=== PATIENT | male | born 1950 | race Caucasian/White ===

== ENCOUNTER 2017-09-26 02:51 | Inpatient (IN) | payer MEDICARE, BC ==
[~2017-09-26] VITALS: Ht 170.2 cm; Wt 81.6 kg
--- NOTE | 2017-09-26 03:06 | NUR ---
ER MD at bedside for patient evaluation
[2017-09-26] MEDS ORDERED: MECLIZINE HCL 25 MG TABLET PO ONE (03:15)
[2017-09-26] MEDS ORDERED: LORAZEPAM 0.5 MG TABLET PO ONE (03:15)
[2017-09-26] MEDS ORDERED: IV NORMAL SALINE 1000 ML BAG IV ONE (03:15)
[2017-09-26] MEDS ORDERED: METO25TA6 PO (03:21)
[2017-09-26] MEDS ORDERED: TAMS-3 PO (03:21)
[2017-09-26] MEDS ORDERED: APIX5TAB4 PO (03:21)
[2017-09-26] MEDS ORDERED: VILA10TA PO (03:21)
[2017-09-26] MEDS ORDERED: CLON0.1T PO (03:21)
[2017-09-26] MEDS ORDERED: ATOR40TA PO (03:21)
[2017-09-26] MEDS ORDERED: ATOM100C PO (03:21)
[2017-09-26] MEDS ORDERED: DESV100T PO (03:21)
[2017-09-26] MEDS ORDERED: MECLIZINE HCL 25 MG TABLET ONE (03:35)
[2017-09-26] MEDS ORDERED: LORAZEPAM 1 MG TABLET ONE (03:36)
--- NOTE | 2017-09-26 03:36 | NUR ---
Patient taken to CT at this time. No acute distress noted. VSS
[2017-09-26 03:46] LABS: CREATININE 1.4 mg/dL (0.6-1.3); POTASSIUM 3.7 mmol/L (3.5-5.1)
[2017-09-26 03:55] LABS: HEMOGLOBIN 17.8 G/DL (14.0-18.0); RED BLOOD CELL COUNT(AUTO) 5.29 MIL/UL (4.7-6.1); WHITE BLOOD COUNT (AUTO) 10.6 K/UL (4.0-11.2)
[2017-09-26 03:56] LABS: MEAN CORPUSCULAR HEMOGLOBIN 33.6 UUG (27.0-31.0); MEAN CORPUSCULAR HGB CONC 34 g/dL (32.0-37.0); MEAN CORPUSCULAR VOLUME 98.2 FL (82.0-92.0); NEUTROPHILS % (AUTO) 41.1 % (38.5-71.5); PLATELET COUNT (AUTO) 171 K/UL (150-450)
[2017-09-26 03:57] LABS: BASOPHILS % (AUTO) 0.5 % (0.0-2.0); EOSINOPHILS % (AUTO) 1.6 % (0.0-7.0); MONOCYTES % (AUTO) 7.8 % (0.0-11.0)
[2017-09-26 03:58] LABS: BILIRUBIN,DIRECT 0.1 mg/dL (0.0-0.2); BILIRUBIN,TOTAL 0.6 mg/dL (0.2-1.0); TOTAL PROTEIN, SERUM 7.2 g/dL (6.4-8.2)
--- NOTE | 2017-09-26 04:27 | NUR ---
Patient awaiting inpatient admission. patient to be admitted to Telemetry, bed 224 under Baljeet Sosa DNP. Dx: Altered mental status
[2017-09-26] MEDS ORDERED: MAGNESIUM HYDROXIDE 30 ML LIQUID UDC PO PRN (04:45)
[2017-09-26] MEDS ORDERED: Z GUARD REMEDY PASTE 57 GM TUBE TOP PRN (04:45)
[2017-09-26] MEDS ORDERED: ACETAMINOPHEN 325 MG TABLET PO PRN (04:45)
[2017-09-26] MEDS ORDERED: HYDROCODONE/APAP 5-325MG TABLET PO PRN (04:45)
[2017-09-26] MEDS ORDERED: ONDANSETRON 4 MG/2 ML VIAL IV PRN (04:45)
--- NOTE | 2017-09-26 05:40 | NUR ---
Report given to Cecille CRUZ
--- NOTE | 2017-09-26 05:47 | NUR ---
Pt. admitted to Telemetry , under care of Baljeet Sosa DNP. Belongs List completed.
[2017-09-26 06:30] VITALS: BP 125/82
--- NOTE | 2017-09-26 08:00 | NUR ---
Pt alert and oriented x 3. Bruising noted on right ac secondary to blood draw and pt is on eliquis. Pt is in no acute distress. Pt denies any c/o pain. Oriented pt on how to use call light. Discussed plan of care with pt re: fall precaution, pain management. Call light is within reach.
[2017-09-26] MEDS: CLONIDINE HCL 0.1 MG TABLET PO SCH ×2 (08:39→20:40)
[2017-09-26] MEDS: METOPROLOL TARTRATE 25 MG TABLET PO SCH ×2 (08:39→16:53)
[2017-09-26] MEDS ORDERED: CLONIDINE HCL 0.1 MG TABLET PO SCH (09:00)
[2017-09-26] MEDS ORDERED: DESVENLAFAXINE SUCCINATE 50 MG PO SCH (09:00)
[2017-09-26] MEDS: IV NS 1000 ML 1,000 ML IV PRN (10:55)
[2017-09-26 11:13] VITALS: BP 112/70
--- NOTE | 2017-09-26 13:00 | NUR ---
Urine sent to lab per [facility] orders. Hospitalist saw pt and new order received and carried out. Call light is within reach.
[2017-09-26 13:26] LABS: *BILIRUBIN,URIN NEGATIVE (NEGATIVE); *BLOOD, URINE Trace-intact (NEGATIVE); *CLARITY,URINE CLEAR (CLEAR); *COLOR,URINE YELLOW (YELLOW); *KETONES,URINE NEGATIVE (NEGATIVE); *PROTEIN,URINE NEGATIVE (NEGATIVE); *UROBILINOGEN,URINE 0.2 E.U./dl (NORMAL); LEUKOCYTE ESTERASE ,URINE NEGATIVE (NEGATIVE); NITRITE, URINE NEGATIVE (NEGATIVE); PH,URINE 5.5 (5.0-8.0); UGLUCOSE NEGATIVE (NEGATIVE)
[2017-09-26 13:38] LABS: BACTERIA,URINE NONE SEEN /HPF (NONE SEEN); MUCUS,URINE FEW /LPF (0-FEW); RBC,URINE 0-3 /HPF (0-3); SQUAMOUS EPITHELIAL CELL,UR FEW /HPF (NONE SEEN); WBC,URINE 0-3 /HPF (0-3)
[2017-09-26 13:42] LABS: *AMPHETAMINE, URINE NEGATIVE (NEGATIVE); *BARBITURATE, URINE NEGATIVE (NEGATIVE); *CANNABINOID, URINE POSITIVE (NEGATIVE); *COCCAINE, URINE NEGATIVE (NEGATIVE); *OPIATE, URINE NEGATIVE (NEGATIVE); *PHENCYCLIDINE SCREEN,URINE NEGATIVE (NEGATIVE)
[2017-09-26 15:46] VITALS: BP 108/66
[2017-09-26] MEDS: DESVENLAFAXINE SUCCINATE 50 MG PO SCH (16:53)
[2017-09-26] MEDS: ATOMOXETINE HCL 25 MG PO SCH (16:53)
[2017-09-26] MEDS: VILAZODONE HYDROCHLORIDE 40 MG PO SCH (16:53)
[2017-09-26] MEDS: APIXABAN 5 MG PO SCH (16:53)
--- NOTE | 2017-09-26 18:46 | NUR ---
IV on right hand #20 gauge remains intact. Tele has been SNR with no ectopy per compliance monitor. Call light is within reach.
--- NOTE | 2017-09-26 19:30 | NUR ---
Received patient laying comfortably in bed. No acute distress noted. A/O x 3 but forgetful. Family at bedside. IVF running on the right hand. TELE Sinus Rhythm. Patient is able to ambulate but needs assistance. Unsteady gait. Advise patient to call for assistance. Bed alarm on. Room is kept clutter free. Bed is in low and locked position. Safety initiated. Call light within reach. Will continue to monitor.
[2017-09-26 20:00] VITALS: BP 116/72
[2017-09-26] MEDS: TAMSULOSIN HCL 0.4 MG CAP.SR.24H PO SCH (20:37)
[2017-09-26] MEDS: ATORVASTATIN 40 MG TABLET PO SCH (20:37)
[2017-09-27] VITALS: BP 120/72
[2017-09-27] MEDS: IV NS 1000 ML 1,000 ML IV PRN ×2 (00:30→18:38)
[2017-09-27 04:00] VITALS: BP 118/76
--- NOTE | 2017-09-27 05:38 | NUR ---
Patient slept intermittently t/o shift. TELE sinus rhythm. No c/o pain or SOB. Vital signs stable. IVF running on the right hand. Urinated well t/o shift. 1 BM. Safety and comfort measures maintained t/o shift. Room was kept clutter free. All meds given as ordered. All needs met.
[2017-09-27 06:36] LABS: BASOPHILS # (AUTO) 0.1 K/uL (0.0-8.0); BASOPHILS % (AUTO) 0.7 % (0.0-2.0); EOSINOPHILS # (AUTO) 0.2 K/uL (0.0-0.7); HEMATOCRIT 45.7 % (36.7-47.1); HEMOGLOBIN 15.5 g/dL (12.5-16.3); LYMPHOCYTES # (AUTO) 5.4 K/uL (20.0-40.0); LYMPHOCYTES % (AUTO) 60.1 % (20.5-51.5); MEAN CORPUSCULAR HEMOGLOBIN 33.4 uug (23.8-33.4); MEAN CORPUSCULAR HGB CONC 34 g/dL (32.5-36.3); MEAN CORPUSCULAR VOLUME 98.2 fL (73.0-96.2); MONOCYTES # (AUTO) 0.6 K/uL (2.0-10.0); MONOCYTES % (AUTO) 6.6 % (0.0-11.0); NEUTROPHILS # (AUTO) 2.7 K/uL (1.8-8.9); NEUTROPHILS % (AUTO) 30.6 % (38.5-71.5); PLATELET COUNT (AUTO) 132 K/uL (152-348); RED BLOOD CELL COUNT(AUTO) 4.66 MIL/uL (4.06-5.63); WHITE BLOOD COUNT (AUTO) 8.9 K/uL (3.6-10.2)
[2017-09-27 06:44] LABS: CREATININE 1.2 mg/dL (0.6-1.3); MAGNESIUM 1.7 mg/dL (1.8-2.4); PHOSPHOROUS 3.2 mg/dL (2.5-4.9); POTASSIUM 3.9 mmol/L (3.5-5.1)
[2017-09-27 06:53] LABS: THYROID STIMULATING HORMONE 1.341 mIU/mL (0.358-3.740)
--- NOTE | 2017-09-27 08:00 | NUR ---
Pt is in no acute distress. Discussed plan of care with pt re: fall precaution implemented. Pt agreeable with plan of care. Call light is within reach.
[2017-09-27] MEDS: CLONIDINE HCL 0.1 MG TABLET PO SCH ×2 (08:18→20:47)
[2017-09-27] MEDS: METOPROLOL TARTRATE 25 MG TABLET PO SCH ×2 (08:18→16:39)
[2017-09-27] MEDS: APIXABAN 5 MG PO SCH ×2 (08:21→16:40)
[2017-09-27] MEDS: DESVENLAFAXINE SUCCINATE 50 MG PO SCH (08:21)
[2017-09-27] MEDS: ATOMOXETINE HCL 25 MG PO SCH ×2 (08:22→16:40)
[2017-09-27] MEDS: VILAZODONE HYDROCHLORIDE 40 MG PO SCH (08:22)
[2017-09-27] MEDS ORDERED: MAGNESIUM SULFATE/D5W 100 ML IV SCH (08:30)
[2017-09-27 11:54] VITALS: BP 113/68
[2017-09-27 15:42] VITALS: BP 115/74
--- NOTE | 2017-09-27 18:30 | NUR ---
Plan of care effective. No fall noted this shift. Pt needs assistance using FWW secondary to pt's balance. Call light is within reach.
--- NOTE | 2017-09-27 19:53 | NUR ---
Received patient laying comfortably in bed. No acute distress noted. No c/o pain and sob. A/O x 3 but forgetful. Family at bedside. IVF running on the right hand. Patient is able to ambulate but needs assistance. Unsteady gait. Advise patient to call for assistance. Bed alarm on. Room is kept clutter free. Bed is in low and locked position. Safety initiated. Call light within reach. Will continue to monitor.
[2017-09-27] MEDS: TAMSULOSIN HCL 0.4 MG CAP.SR.24H PO SCH (20:27)
[2017-09-27] MEDS: ATORVASTATIN 40 MG TABLET PO SCH (20:27)
[2017-09-27 20:50] VITALS: BP 122/77
[2017-09-28 04:22] VITALS: BP 116/74
--- NOTE | 2017-09-28 05:37 | NUR ---
Patient slept intermittently t/o shift. No c/o pain or SOB. Maintained A/O x 3 but forgetful. Vital signs stable. IVF running on the right hand. Urinated well t/o shift. 1 BM. Safety and comfort measures maintained t/o shift. Room was kept clutter free. All meds given as ordered. All needs met.
[2017-09-28 06:51] LABS: POTASSIUM 3.8 mmol/L (3.5-5.1)
--- NOTE | 2017-09-28 08:00 | NUR ---
Pt states that he wants to go home. Pt denies any c/o pain. Call light is within reach.
[2017-09-28] MEDS: CLONIDINE HCL 0.1 MG TABLET PO SCH ×2 (08:09→21:17)
[2017-09-28] MEDS: APIXABAN 5 MG PO SCH ×2 (08:10→17:02)
[2017-09-28] MEDS: METOPROLOL TARTRATE 25 MG TABLET PO SCH ×2 (08:10→17:01)
[2017-09-28] MEDS: VILAZODONE HYDROCHLORIDE 40 MG PO SCH (08:10)
[2017-09-28] MEDS: ATOMOXETINE HCL 25 MG PO SCH ×2 (08:11→17:01)
[2017-09-28] MEDS: DESVENLAFAXINE SUCCINATE 50 MG PO SCH ×2 (08:11→17:02)
[2017-09-28 11:12] VITALS: BP 121/77
[2017-09-28 11:38] LABS: BASOPHILS % (AUTO) 0.5 % (0.0-2.0); EOSINOPHILS # (AUTO) 0.2 K/uL (0.0-0.7); EOSINOPHILS % (AUTO) 2.1 % (0.0-7.0); HEMATOCRIT 45.5 % (36.7-47.1); HEMOGLOBIN 15.7 g/dL (12.5-16.3); LYMPHOCYTES # (AUTO) 4.2 K/uL (20.0-40.0); LYMPHOCYTES % (AUTO) 49.4 % (20.5-51.5); MEAN CORPUSCULAR HEMOGLOBIN 33.5 uug (23.8-33.4); MEAN CORPUSCULAR HGB CONC 35 g/dL (32.5-36.3); MEAN CORPUSCULAR VOLUME 97.2 fL (73.0-96.2); MONOCYTES # (AUTO) 0.5 K/uL (2.0-10.0); MONOCYTES % (AUTO) 6.1 % (0.0-11.0); NEUTROPHILS # (AUTO) 3.6 K/uL (1.8-8.9); NEUTROPHILS % (AUTO) 41.9 % (38.5-71.5); PLATELET COUNT (AUTO) 124 K/uL (152-348); RED BLOOD CELL COUNT(AUTO) 4.68 MIL/uL (4.06-5.63); WHITE BLOOD COUNT (AUTO) 8.5 K/uL (3.6-10.2)
--- NOTE | 2017-09-28 12:30 | NUR ---
DR stallings here to see patient. Awaiting for PT eval for recommendations of placement.
--- NOTE | 2017-09-28 14:25 | NUR ---
Plan of care effective. No fall noted this shift. Pt needs assistance using FWW secondary to pt's balance. Call light is within reach. Addendum: 09/28/17 at 1845 by MANSI ACEVEDO RN wrong pt.
[2017-09-28 15:25] VITALS: BP 140/74
--- NOTE | 2017-09-28 18:45 | NUR ---
pt is in no acute distress. Call light is within reach.
[2017-09-28 20:00] VITALS: BP 112/71
[2017-09-28] MEDS: TAMSULOSIN HCL 0.4 MG CAP.SR.24H PO SCH (21:17)
[2017-09-28] MEDS: ATORVASTATIN 40 MG TABLET PO SCH (21:17)
[2017-09-28] MEDS: IV NS 1000 ML 1,000 ML IV PRN (23:51)
[2017-09-29 04:37] VITALS: BP 99/64
[2017-09-29 06:32] LABS: BASOPHILS % (AUTO) 0.5 % (0.0-2.0); EOSINOPHILS # (AUTO) 0.2 K/uL (0.0-0.7); EOSINOPHILS % (AUTO) 2.1 % (0.0-7.0); HEMATOCRIT 45.3 % (36.7-47.1); HEMOGLOBIN 15.8 g/dL (12.5-16.3); LYMPHOCYTES % (AUTO) 55.3 % (20.5-51.5); MEAN CORPUSCULAR HEMOGLOBIN 33.8 uug (23.8-33.4); MEAN CORPUSCULAR HGB CONC 35 g/dL (32.5-36.3); MEAN CORPUSCULAR VOLUME 96.9 fL (73.0-96.2); MONOCYTES # (AUTO) 0.8 K/uL (2.0-10.0); MONOCYTES % (AUTO) 8.5 % (0.0-11.0); NEUTROPHILS % (AUTO) 33.6 % (38.5-71.5); PLATELET COUNT (AUTO) 133 K/uL (152-348); RED BLOOD CELL COUNT(AUTO) 4.68 MIL/uL (4.06-5.63); WHITE BLOOD COUNT (AUTO) 9.1 K/uL (3.6-10.2)
[2017-09-29] MEDS ORDERED: PANTOPRAZOLE SODIUM 40 MG TABLET.DR PO SCH (07:00)
[2017-09-29 08:03] LABS: EOSINOPHILS % (MANUAL) 2 % (0-8); MONOCYTES % (MANUAL) 3 % (2-10); NEUTROPHILS % (MANUAL) 29 % (42-75)
[2017-09-29 08:08] LABS: LYMPHOCYTES % (MANUAL) 66 % (20-40)
[2017-09-29 08:54] LABS: BILIRUBIN,TOTAL 0.7 mg/dL (0.2-1.0); MAGNESIUM 1.8 mg/dL (1.8-2.4); PHOSPHOROUS 3.5 mg/dL (2.5-4.9); POTASSIUM 3.9 mmol/L (3.5-5.1); TOTAL PROTEIN, SERUM 6.6 g/dL (6.4-8.2)
[2017-09-29] MEDS: CLONIDINE HCL 0.1 MG TABLET PO SCH ×2 (08:55→21:59)
[2017-09-29] MEDS: METOPROLOL TARTRATE 25 MG TABLET PO SCH ×2 (08:56→16:57)
[2017-09-29] MEDS: ATOMOXETINE HCL 25 MG PO SCH ×2 (08:56→16:57)
[2017-09-29] MEDS: APIXABAN 5 MG PO SCH ×2 (08:56→16:56)
[2017-09-29] MEDS: VILAZODONE HYDROCHLORIDE 40 MG PO SCH (09:08)
--- NOTE | 2017-09-29 09:45 | NUR ---
Pt showered last night. He's anticipating to transfer to a SNF for rehab. Gait is slow and steady with standby assist only. Denies pain or discomfort. All needs attended to. According to patient he slept well last night.
[2017-09-29 11:34] VITALS: BP 98/62
--- NOTE | 2017-09-29 12:55 | NUR ---
Bedside report received at bedside. patient AAOX4. Vitals signs stable, no c/of pain. Will continue with care plan.
[2017-09-29 15:23] VITALS: BP 132/68
[2017-09-29] MEDS ORDERED: ATOR10TA PO (17:16)
[2017-09-29] MEDS ORDERED: MULT1TAB73 PO (17:16)
[2017-09-29] MEDS ORDERED: ACET325T53 PO (17:16)
[2017-09-29] MEDS ORDERED: MAGN400O6 PO (17:16)
[2017-09-29] MEDS ORDERED: PANT40TA2 PO (17:16)
[2017-09-29] MEDS ORDERED: CLON0.1T14 PO (17:16)
--- NOTE | 2017-09-29 17:46 | NUR ---
Call Adi Kaufman and report given to Yahir Johnson. DCD instructions provided to patient, belongings list sign and medical transportation arranged by network security administrator. IV line dcd. and pt's own medications return. Patient will be leaving AAOX4, vital signs stable. Estimated time for patient to be pick up driver 1999. Addendum: 09/29/17 at 1757 by COLE SEVILLA RN Bruised area to RAC remains the same patient refusing pictures taken at this time.
--- NOTE | 2017-09-29 19:00 | NUR ---
RECEIVED PT AWAKE, ALERT, ORIENTEDX3. PT SHOWS NO SIGNS OF DISTRESS. PT TO BE DISCHARGED JUST WAITING FOR AMBULANZ. WILL CONTINUE TO MONITOR.
[2017-09-29 19:55] VITALS: BP 128/91
--- NOTE | 2017-09-29 20:40 | NUR ---
PT ANXIOUS BECAUSE SOMEONE IS WAITING FOR HIM IN THE FACILITY. CHARGE NURSE AWARE. [facility]. [id number]. RANGE FEEDER TOLD ME PT TRYING TO GET OUT OF THE CHAIR AND FELT DIZZY. PT SCOOT DOWN WITH HIS TWO HAND ON THE FLOOR TO BALANCE HIMSELF. PT DIDN'T FELL. I TOOKED THE VITAL SIGNS ON HIM AFTER THE INCIDENT THAT THE RANGE FEEDER TOLD ME. PT VITAL SIGNS STABLE AND WITHIN NORMAL LIMIT.PT IS JUST ANNOYED BECAUSE SOMEONE IS WAITING FOR HIM. WILL CONTINUE TO MONITOR.
[2017-09-29 21:59] VITALS: BP 128/71
[2017-09-29] MEDS: ATORVASTATIN 40 MG TABLET PO SCH (21:59)
[2017-09-29] MEDS: TAMSULOSIN HCL 0.4 MG CAP.SR.24H PO SCH (21:59)
--- NOTE | 2017-09-29 22:30 | NUR ---
PT DISCHARGED VIA GURNEY. AMBULPR UNIT NUMBER IS # [id number] DIANA. PT SHOWS NO SIGNS OF DISTRESS. GAVE ROUTINE MEDICATION AND TYLENOL AT 2159 BEFORE DISCHARGED.PT TOLERATED THE MEDICATION.PT STABLE. PT VITAL SIGNS WITHIN NORMAL LIMIT.BELONGING LIST DONE AND DISCHARGE PACKET GIVEN. DISCHARGED INSTRUCTIONS GIVEN AND PT VERBAL UNDERSTANDING.
== END 2017-09-29 23:35 | DRG 73 ==
LOC: ER 02:56 → TELE 05:32 → MED 09-27 18:49
PROVIDERS: ADMIT Nurse Practitioner Acute Care; ATTEND Nurse Practitioner Acute Care
DX: G90.8 Other disorders of autonomic nervous system (principal); N17.0 Acute kidney failure with tubular necrosis; G93.40 Encephalopathy, unspecified; E44.0 Moderate protein-calorie malnutrition; D69.6 Thrombocytopenia, unspecified; D68.59 Other primary thrombophilia; E83.42 Hypomagnesemia; E83.51 Hypocalcemia; I48.91 Unspecified atrial fibrillation; J98.11 Atelectasis; F95.2 Tourette's disorder; I08.1 Rheumatic disorders of both mitral and tricuspid valves; E86.0 Dehydration; I95.2 Hypotension due to drugs; E78.5 Hyperlipidemia, unspecified; F32.9 Major depressive disorder, single episode, unspecified; G25.0 Essential tremor; Z79.899 Other long term (current) drug therapy; I44.0 Atrioventricular block, first degree; Z79.01 Long term (current) use of anticoagulants; F90.9 Attention-deficit hyperactivity disorder, unspecified type; R26.81 Unsteadiness on feet; N40.1 Benign prostatic hyperplasia with lower urinary tract symptoms; R35.0 Frequency of micturition; Z74.09 Other reduced mobility; T50.905A Adverse effect of unspecified drugs, medicaments and biological substances, initial encounter; Y92.009 Unspecified place in unspecified non-institutional (private) residence as the place of occurrence of the external cause; Z68.28 Body mass index [BMI] 28.0-28.9, adult; E78.00 Pure hypercholesterolemia, unspecified; H55.09 Other forms of nystagmus; Z87.891 Personal history of nicotine dependence; I10 Essential (primary) hypertension
CPT/HCPCS: 36415; 70030-TC; 70450; 71045; 80307; 83735; 84100; 84443; 85025; 85730; 93005; 93307; A4663; C1758; J3475; J7030; J8597

== ENCOUNTER 2018-03-12 20:56 | Inpatient (IN) | payer BC, MEDICARE ==
[~2018-03-12] VITALS: Ht 175.3 cm; Wt 83.5 kg
[2018-03-12 00:01] VITALS: BP 112/73
[~2018-03-12 20:56] MED LIST: ACET325T53 PO; APIX5TAB4 PO; ATOM100C PO; ATOR10TA PO; CLON0.1T14 PO; DESV100T PO; MAGN400O6 PO; METO25TA6 PO; MULT1TAB73 PO; PANT40TA2 PO; TAMS-3 PO; VILA10TA PO
[2018-03-12] MEDS ORDERED: VILA10TA PO (21:09)
[2018-03-12] MEDS ORDERED: ATOR40TA29 PO (21:09)
[2018-03-12] MEDS ORDERED: DESV50TA PO (21:09)
--- NOTE | 2018-03-12 21:20 | NUR ---
patient to ed with c/o atrial fibrillation, sent to ed from urgent care. patient denies any complaint of chest pain, nausea or vomiting. patient c/o some feeling of weakness, and dizziness. placed patient on monitor, labs drawn and started patient on oxygen 2 liters nasal cannula
[2018-03-12] MEDS ORDERED: ASPIRIN 81 MG TAB.CHEW PO ONE (21:30)
[2018-03-12] MEDS ORDERED: AMIODARONE HCL IV 150 MG in IV DEXTROSE 5% 100 ML IV ONE (21:30)
[2018-03-12] MEDS ORDERED: NITROGLYCERIN OINT 1 GM PACKET TP ONE ×2 (21:30→21:55)
[2018-03-12] MEDS ORDERED: AMIODARONE HCL IV 900 MG in IV DEXTROSE 5% 500 ML IV ONE (21:30)
[2018-03-12 21:40] LABS: BASOPHILS # (AUTO) 0.1 K/uL (0.0-8.0); BASOPHILS % (AUTO) 0.7 % (0.0-2.0); EOSINOPHILS # (AUTO) 0.2 K/uL (0.0-0.7); EOSINOPHILS % (AUTO) 1.3 % (0.0-7.0); HEMATOCRIT 48.1 % (36.7-47.1); HEMOGLOBIN 16.4 g/dL (12.5-16.3); LYMPHOCYTES # (AUTO) 5.6 K/uL (20.0-40.0); LYMPHOCYTES % (AUTO) 44.5 % (20.5-51.5); MEAN CORPUSCULAR HEMOGLOBIN 33.3 uug (23.8-33.4); MEAN CORPUSCULAR HGB CONC 34 g/dL (32.5-36.3); MEAN CORPUSCULAR VOLUME 97.8 fL (73.0-96.2); MONOCYTES # (AUTO) 0.8 K/uL (2.0-10.0); MONOCYTES % (AUTO) 6.3 % (0.0-11.0); NEUTROPHILS # (AUTO) 5.9 K/uL (1.8-8.9); NEUTROPHILS % (AUTO) 47.2 % (38.5-71.5); PLATELET COUNT (AUTO) 190 K/uL (152-348); RED BLOOD CELL COUNT(AUTO) 4.92 MIL/uL (4.06-5.63); WHITE BLOOD COUNT (AUTO) 12.5 K/uL (3.6-10.2)
[2018-03-12 21:49] LABS: CREATININE 1.4 mg/dL (0.6-1.3); POTASSIUM 3.8 mmol/L (3.5-5.1)
[2018-03-12] MEDS ORDERED: AMIODARONE HCL 150 MG/3 ML VIAL IV ONE ×2 (21:54→23:04)
[2018-03-12] MEDS ORDERED: ASPIRIN 81 MG TAB.CHEW ONE (21:55)
[2018-03-12 22:09] LABS: BILIRUBIN,DIRECT 0.2 mg/dL (0.0-0.2); BILIRUBIN,TOTAL 0.8 mg/dL (0.2-1.0)
[2018-03-12] MEDS ORDERED: IV NORMAL SALINE 1000 ML BAG IV ONE (22:15)
--- NOTE | 2018-03-12 23:16 | NUR ---
patient has improved heart rate now monitor shows atrial flutter-- patient denies any complaint of pain, shortness of breath, nausea or vomiting
--- NOTE | 2018-03-12 23:36 | NUR ---
report called to ryan
[2018-03-12] MEDS ORDERED: ONDANSETRON 4 MG/2 ML VIAL IV PRN (23:45)
[2018-03-12] MEDS ORDERED: ACETAMINOPHEN 325 MG TABLET PO PRN (23:45)
[2018-03-13 00:01] VITALS: BP 112/73
[2018-03-13] MEDS: ZOLPIDEM 5 MG TABLET PO PRN ×2 (01:16→23:39)
[2018-03-13 04:00] VITALS: BP 134/67
--- NOTE | 2018-03-13 05:07 | NUR ---
Converted to sinus rhythm. Continues Amiodarone gtt.
[2018-03-13 05:12] LABS: BASOPHILS # (AUTO) 0.1 K/uL (0.0-8.0); BASOPHILS % (AUTO) 0.7 % (0.0-2.0); EOSINOPHILS # (AUTO) 0.3 K/uL (0.0-0.7); EOSINOPHILS % (AUTO) 2.8 % (0.0-7.0); HEMATOCRIT 43.4 % (36.7-47.1); LYMPHOCYTES # (AUTO) 5.4 K/uL (20.0-40.0); LYMPHOCYTES % (AUTO) 52.5 % (20.5-51.5); MEAN CORPUSCULAR HEMOGLOBIN 33.1 uug (23.8-33.4); MEAN CORPUSCULAR HGB CONC 35 g/dL (32.5-36.3); MEAN CORPUSCULAR VOLUME 95.9 fL (73.0-96.2); MONOCYTES # (AUTO) 0.9 K/uL (2.0-10.0); NEUTROPHILS # (AUTO) 3.6 K/uL (1.8-8.9); PLATELET COUNT (AUTO) 159 K/uL (152-348); RED BLOOD CELL COUNT(AUTO) 4.52 MIL/uL (4.06-5.63); WHITE BLOOD COUNT (AUTO) 10.4 K/uL (3.6-10.2)
[2018-03-13 05:40] LABS: CREATININE 1.2 mg/dL (0.6-1.3); MAGNESIUM 1.8 mg/dL (1.8-2.4); PHOSPHOROUS 4.5 mg/dL (2.5-4.9); POTASSIUM 3.7 mmol/L (3.5-5.1); THYROID STIMULATING HORMONE 3.268 mIU/mL (0.358-3.740)
[2018-03-13 06:29] LABS: EOSINOPHILS % (MANUAL) 4 % (0-8); LYMPHOCYTES % (MANUAL) 52 % (20-40); MONOCYTES % (MANUAL) 9 % (2-10); NEUTROPHILS % (MANUAL) 35 % (42-75)
[2018-03-13] MEDS: PANTOPRAZOLE SODIUM 40 MG TABLET.DR PO SCH (06:51)
--- NOTE | 2018-03-13 07:30 | NUR ---
RESTING IN BED AWAKE ALERT AND ORIENTED X3 NO SS OF DISTRESS EXCEPT FOR ON AND OFF PAIN ANTERIOR CHEST. CONTINUE WITH PAIN MANAGEMENT SR ON MONITOR
[2018-03-13 07:37] VITALS: BP 101/73
[2018-03-13] MEDS: AMIODARONE HCL IV 900 MG in IV DEXTROSE 5% 482 ML IV PRN ×2 (07:40→08:00)
[2018-03-13] MEDS: METOPROLOL TARTRATE 25 MG TABLET PO SCH ×2 (08:22→16:10)
[2018-03-13] MEDS: MULTIVITAMINS,THERAPEUTIC TABLET PO SCH (08:22)
[2018-03-13] MEDS: MORPHINE SULFATE 4 MG/1 ML DISP.SYRIN IV PRN ×3 (08:53→19:28)
[2018-03-13] MEDS ORDERED: VILAZODONE HYDROCHLORIDE 10 MG PO SCH (09:00)
[2018-03-13] MEDS ORDERED: Medication Not On Formulary EA (Desvenlafaxine Succinate (Pristiq) 50 MG) PO SCH (09:00)
[2018-03-13] MEDS ORDERED: APIXABAN 5 MG TABLET PO ONE ×2 (09:00→09:15)
[2018-03-13] MEDS ORDERED: MAGNESIUM SULFATE/D5W 100 ML IV SCH (10:30)
--- NOTE | 2018-03-13 10:30 | NUR ---
HOSPITALIST IN AND EXAMINED PATIENT SEE ORDERS
[2018-03-13] MEDS: DESVENLAFAXINE SUCCINATE 50MG PO SCH (11:08)
[2018-03-13] MEDS ORDERED: LAMO100T2 PO (11:08)
[2018-03-13] MEDS: VIIBRYD 40 MG PO SCH (11:09)
[2018-03-13 11:16] VITALS: BP 104/68
[2018-03-13] MEDS ORDERED: GUAIFENESIN/DEXTROMETHORPHAN 5 ML UDC PO PRN (12:00)
--- NOTE | 2018-03-13 12:00 | NUR ---
SEEN BY DR MARINO FOR RENAL FOLLOW-UP, 2DECHO DONE 55% EF
[2018-03-13] MEDS ORDERED: IPRATROPIUM BROMIDE 0.5 MG/2.5 ML NEBU NEB PRN (12:30)
[2018-03-13] MEDS ORDERED: ALBUTEROL SULFATE 2.5 MG/ 0.5 ML NEBU NEB PRN (12:30)
[2018-03-13] MEDS ORDERED: AMIODARONE HCL 200 MG TABLET PO SCH (12:45)
[2018-03-13] MEDS: GUAIFENESIN/CODEINE 5 ML LIQUID UDC PO PRN ×2 (13:37→19:27)
[2018-03-13] MEDS: LAMOTRIGINE 100 MG TABLET PO SCH (14:03)
[2018-03-13] MEDS: CEFTRIAXONE 1 G in IV DEXTROSE 5% 50 ML IV SCH (14:04)
[2018-03-13 15:31] VITALS: BP 97/63
[2018-03-13] MEDS ORDERED: Medication Not On Formulary EA (Apixaban (Eliquis) 5 MG) PO SCH (17:00)
[2018-03-13 17:44] LABS: *BILIRUBIN,URIN NEGATIVE (NEGATIVE); *BLOOD, URINE Trace-intact (NEGATIVE); *CLARITY,URINE CLEAR (CLEAR); *COLOR,URINE YELLOW (YELLOW); *KETONES,URINE NEGATIVE (NEGATIVE); *PROTEIN,URINE NEGATIVE (NEGATIVE); *UROBILINOGEN,URINE 0.2 E.U./dl (NORMAL); LEUKOCYTE ESTERASE ,URINE NEGATIVE (NEGATIVE); NITRITE, URINE NEGATIVE (NEGATIVE); PH,URINE 5.5 (5.0-8.0); UGLUCOSE NEGATIVE (NEGATIVE)
[2018-03-13 17:55] LABS: *CREATININE,URINE 91.4 mg/dL (30-125); *URINE TOTAL PROTEIN RANDOM 7.3 mg/dL (<150/24HR)
--- NOTE | 2018-03-13 18:29 | NUR ---
SEEN BY DR FERNÁNDEZ FOR CARDIO CONSULT SEE NOTES. REMAINS SR ON MONITO NO SS OF PAIN OR DISTRESS
[2018-03-13 19:31] LABS: MUCUS,URINE FEW /LPF (0-FEW); SQUAMOUS EPITHELIAL CELL,UR FEW /HPF (NONE SEEN); WBC,URINE 0-3 /HPF (0-3)
[2018-03-13 20:00] VITALS: BP 102/65
[2018-03-13] MEDS: ATORVASTATIN 40 MG TABLET PO SCH (20:57)
[2018-03-13] MEDS: TAMSULOSIN HCL 0.4 MG CAP.SR.24H PO SCH (20:57)
[2018-03-14 04:00] VITALS: BP 91/55
[2018-03-14] MEDS: PANTOPRAZOLE SODIUM 40 MG TABLET.DR PO SCH (06:36)
[2018-03-14] MEDS: GUAIFENESIN/CODEINE 5 ML LIQUID UDC PO PRN ×2 (06:39→20:58)
[2018-03-14] MEDS: MORPHINE SULFATE 4 MG/1 ML DISP.SYRIN IV PRN (06:43)
--- NOTE | 2018-03-14 07:12 | NUR ---
NURSING NOTES Patient rested well in between care; VSS; c/o pain and medicated with morphine; requested for cough syrup and administered; family at bedside; SR all night. continue to monitor; continue plan of care;
[2018-03-14 07:13] LABS: BASOPHILS % (AUTO) 0.4 % (0.0-2.0); EOSINOPHILS # (AUTO) 0.5 K/uL (0.0-0.7); HEMOGLOBIN 14.3 g/dL (12.5-16.3); LYMPHOCYTES # (AUTO) 4.7 K/uL (20.0-40.0); LYMPHOCYTES % (AUTO) 49.1 % (20.5-51.5); MEAN CORPUSCULAR HEMOGLOBIN 33.5 uug (23.8-33.4); MEAN CORPUSCULAR HGB CONC 34 g/dL (32.5-36.3); MEAN CORPUSCULAR VOLUME 98.3 fL (73.0-96.2); MONOCYTES # (AUTO) 0.8 K/uL (2.0-10.0); MONOCYTES % (AUTO) 8.4 % (0.0-11.0); NEUTROPHILS # (AUTO) 3.5 K/uL (1.8-8.9); NEUTROPHILS % (AUTO) 37.1 % (38.5-71.5); PLATELET COUNT (AUTO) 156 K/uL (152-348); RED BLOOD CELL COUNT(AUTO) 4.27 MIL/uL (4.06-5.63); WHITE BLOOD COUNT (AUTO) 9.6 K/uL (3.6-10.2)
[2018-03-14 07:54] VITALS: BP 95/59
[2018-03-14 08:10] LABS: CREATININE 1.1 mg/dL (0.6-1.3); PHOSPHOROUS 3.7 mg/dL (2.5-4.9); POTASSIUM 4.1 mmol/L (3.5-5.1)
[2018-03-14] MEDS: DESVENLAFAXINE SUCCINATE 50MG PO SCH (08:31)
[2018-03-14] MEDS: MULTIVITAMINS,THERAPEUTIC TABLET PO SCH (08:32)
[2018-03-14] MEDS: VIIBRYD 40 MG PO SCH (08:32)
[2018-03-14] MEDS: METOPROLOL TARTRATE 25 MG TABLET PO SCH ×2 (08:35→16:39)
[2018-03-14] MEDS: LAMOTRIGINE 100 MG TABLET PO SCH (08:35)
[2018-03-14 08:37] LABS: *CREATININE,URINE 146.3 mg/dL (30-125); *URINE TOTAL PROTEIN RANDOM 10.4 mg/dL (<150/24HR)
[2018-03-14 12:00] VITALS: BP 97/55
[2018-03-14] MEDS: HYDROCODONE/APAP 5-325MG TABLET PO PRN ×3 (12:32→20:56)
--- NOTE | 2018-03-14 12:46 | NUR ---
At 1230 pt's who remains at bedside called to report that her had a syncopal episode. Patient assessed and found to be neurologically intact. vitals stable 98/60 hr 69. Attending Ning morris. Addendum: 03/14/18 at 1541 by COLE SEVILLA RN PT's friend.
--- NOTE | 2018-03-14 14:12 | NUR ---
After getting up to walk pt. with sustained sinus tachycardia in the high 130's low 140's sustained. Attending N.P. notified orders for norco 5 mg x 1 dose received. also ekg stat
[2018-03-14] MEDS ORDERED: HYDROCODONE/APAP 5-325MG TABLET PO ONE (14:30)
[2018-03-14] MEDS: CEFTRIAXONE 1 G in IV DEXTROSE 5% 50 ML IV SCH (14:31)
[2018-03-14 14:37] VITALS: BP 104/70
--- NOTE | 2018-03-14 14:45 | NUR ---
A full report including ekg results notified to Dr. Bobby orders to start pt. on Amiodarone per protocol and notified Dr. Yun.
[2018-03-14] MEDS ORDERED: AMIODARONE HCL IV 150 MG in IV DEXTROSE 5% 100 ML IV ONE (15:00)
[2018-03-14] MEDS ORDERED: AMIODARONE HCL IV 900 MG in IV DEXTROSE 5% 482 ML IV PRN (15:00)
[2018-03-14] MEDS ORDERED: VILA40TA PO (15:30)
--- NOTE | 2018-03-14 15:30 | NUR ---
Dr. Sanchez notified of pt's condition and up dated on orders received from Dr. Bobby.
--- NOTE | 2018-03-14 16:00 | NUR ---
pt. started on amiodarone drip per protocol as ordered. friend remains at bedside. Vitals remains stable.
[2018-03-14 20:00] VITALS: BP 100/60
[2018-03-14] MEDS ORDERED: HYDROCODONE/APAP 5-325MG TABLET PO PRN ×2 (20:07)
--- NOTE | 2018-03-14 20:11 | NUR ---
Via phone, patient spoke to Dr. Sanchez.
[2018-03-14] MEDS: TAMSULOSIN HCL 0.4 MG CAP.SR.24H PO SCH (20:45)
[2018-03-14] MEDS: ATORVASTATIN 40 MG TABLET PO SCH (20:45)
[2018-03-15] VITALS (7 sets, daily range): BP systolic 94–130; BP diastolic 57–99
[2018-03-15] MEDS: ZOLPIDEM 5 MG TABLET PO PRN ×2 (00:05→23:16)
[2018-03-15 05:13] LABS: BASOPHILS % (AUTO) 0.5 % (0.0-2.0); EOSINOPHILS # (AUTO) 0.4 K/uL (0.0-0.7); EOSINOPHILS % (AUTO) 5.2 % (0.0-7.0); HEMATOCRIT 44.5 % (36.7-47.1); HEMOGLOBIN 15.2 g/dL (12.5-16.3); LYMPHOCYTES # (AUTO) 4.1 K/uL (20.0-40.0); LYMPHOCYTES % (AUTO) 55.8 % (20.5-51.5); MEAN CORPUSCULAR HEMOGLOBIN 33.1 uug (23.8-33.4); MEAN CORPUSCULAR HGB CONC 34 g/dL (32.5-36.3); MONOCYTES # (AUTO) 0.6 K/uL (2.0-10.0); MONOCYTES % (AUTO) 8.5 % (0.0-11.0); NEUTROPHILS # (AUTO) 2.2 K/uL (1.8-8.9); PLATELET COUNT (AUTO) 156 K/uL (152-348); RED BLOOD CELL COUNT(AUTO) 4.58 MIL/uL (4.06-5.63); WHITE BLOOD COUNT (AUTO) 7.4 K/uL (3.6-10.2)
[2018-03-15 05:29] LABS: CREATININE 1.1 mg/dL (0.6-1.3); MAGNESIUM 1.9 mg/dL (1.8-2.4); PHOSPHOROUS 3.7 mg/dL (2.5-4.9)
[2018-03-15] MEDS: PANTOPRAZOLE SODIUM 40 MG TABLET.DR PO SCH (07:22)
[2018-03-15] MEDS: MULTIVITAMINS,THERAPEUTIC TABLET PO SCH (08:23)
[2018-03-15] MEDS: GUAIFENESIN/CODEINE 5 ML LIQUID UDC PO PRN ×3 (08:23→20:34)
[2018-03-15] MEDS: DESVENLAFAXINE SUCCINATE 50MG PO SCH (08:25)
[2018-03-15] MEDS: HYDROCODONE/APAP 5-325MG TABLET PO PRN ×3 (08:25→20:35)
[2018-03-15] MEDS: VIIBRYD 40 MG PO SCH (08:26)
--- NOTE | 2018-03-15 08:30 | NUR ---
Seen and evaluated by Dante Razo. No new orders at this time.
[2018-03-15] MEDS: METOPROLOL TARTRATE 25 MG TABLET PO SCH ×2 (09:00→17:28)
--- NOTE | 2018-03-15 09:00 | NUR ---
Pt resting in bed. Noted with productive cough and complaints of generalized pain. Pain medication administered. Will reassess
[2018-03-15] MEDS: LAMOTRIGINE 100 MG TABLET PO SCH (09:54)
--- NOTE | 2018-03-15 10:00 | NUR ---
Pt at bedside.
[2018-03-15] MEDS ORDERED: POLYVINYL ALCOHOL OPHT DROPS 15 ML BOTTLE EACHEYE PRN (11:30)
[2018-03-15] MEDS: CEFTRIAXONE 1 G in IV DEXTROSE 5% 50 ML IV SCH (13:24)
--- NOTE | 2018-03-15 14:45 | NUR ---
medicated for pain and for cough. Addendum: 03/15/18 at 1544 by JULISA BROTHERS RN Amended: Links added.
--- NOTE | 2018-03-15 17:30 | NUR ---
transferred to tele floor room 207, report given to Paula CRUZ
--- NOTE | 2018-03-15 19:30 | NUR ---
RECEIVED PT IN BED, FAMILY AT BEDSIDE. IN NO ACUTE SIGN OF DISTRESS. SR ON TELE. SAFETY MEASURES OBSERVED.
[2018-03-15] MEDS: ATORVASTATIN 40 MG TABLET PO SCH (20:34)
[2018-03-15] MEDS: TAMSULOSIN HCL 0.4 MG CAP.SR.24H PO SCH (20:34)
[2018-03-15] MEDS: AMIODARONE HCL 200 MG TABLET PO SCH (20:34)
[2018-03-16] VITALS (7 sets, daily range): BP systolic 102–118; BP diastolic 60–70
[2018-03-16] MEDS: PANTOPRAZOLE SODIUM 40 MG TABLET.DR PO SCH (06:02)
[2018-03-16] MEDS: HYDROCODONE/APAP 5-325MG TABLET PO PRN ×3 (06:02→19:30)
--- NOTE | 2018-03-16 06:15 | NUR ---
LEFT CHEST/ GENERALIZED PAIN MANAGED WITH NORCO 2 TABS. SR ON TELE. COUGH AT TIMES, ROBITUSSIN GIVEN ORDERED. SAFETY MEASURES MAINTAINED.
[2018-03-16 07:37] LABS: BASOPHILS # (AUTO) 0.1 K/uL (0.0-8.0); BASOPHILS % (AUTO) 0.7 % (0.0-2.0); EOSINOPHILS # (AUTO) 0.4 K/uL (0.0-0.7); EOSINOPHILS % (AUTO) 5.5 % (0.0-7.0); HEMATOCRIT 42.1 % (36.7-47.1); HEMOGLOBIN 14.5 g/dL (12.5-16.3); LYMPHOCYTES # (AUTO) 4.3 K/uL (20.0-40.0); LYMPHOCYTES % (AUTO) 53.7 % (20.5-51.5); MEAN CORPUSCULAR HEMOGLOBIN 33.9 uug (23.8-33.4); MEAN CORPUSCULAR HGB CONC 35 g/dL (32.5-36.3); MEAN CORPUSCULAR VOLUME 98.2 fL (73.0-96.2); MONOCYTES # (AUTO) 0.7 K/uL (2.0-10.0); MONOCYTES % (AUTO) 8.6 % (0.0-11.0); NEUTROPHILS # (AUTO) 2.5 K/uL (1.8-8.9); NEUTROPHILS % (AUTO) 31.5 % (38.5-71.5); PLATELET COUNT (AUTO) 154 K/uL (152-348); RED BLOOD CELL COUNT(AUTO) 4.28 MIL/uL (4.06-5.63); WHITE BLOOD COUNT (AUTO) 8.1 K/uL (3.6-10.2)
[2018-03-16 07:49] LABS: CREATININE 1.1 mg/dL (0.6-1.3); MAGNESIUM 1.9 mg/dL (1.8-2.4); PHOSPHOROUS 3.5 mg/dL (2.5-4.9); POTASSIUM 4.1 mmol/L (3.5-5.1)
[2018-03-16] MEDS: METOPROLOL TARTRATE 25 MG TABLET PO SCH ×2 (09:00→16:50)
[2018-03-16] MEDS: DESVENLAFAXINE SUCCINATE 50MG PO SCH (09:49)
[2018-03-16] MEDS: LAMOTRIGINE 100 MG TABLET PO SCH (09:49)
[2018-03-16] MEDS: VIIBRYD 40 MG PO SCH (09:49)
[2018-03-16] MEDS: AMIODARONE HCL 200 MG TABLET PO SCH ×2 (09:50→20:16)
[2018-03-16] MEDS: MULTIVITAMINS,THERAPEUTIC TABLET PO SCH (09:50)
[2018-03-16] MEDS: GUAIFENESIN/CODEINE 5 ML LIQUID UDC PO PRN ×2 (09:57→19:29)
[2018-03-16] MEDS ORDERED: AMIO200T6 PO (11:44)
--- NOTE | 2018-03-16 12:30 | NUR ---
Discussed discharge plans with patient regarding follow up with Cardio and PCP. patient concerned with Level of ambulation concerned he is unsteady, STAT PT eval to evaluate patient prior to discharge
[2018-03-16] MEDS: CEFTRIAXONE 1 G in IV DEXTROSE 5% 50 ML IV SCH (13:33)
[2018-03-16] MEDS: TAMSULOSIN HCL 0.4 MG CAP.SR.24H PO SCH (20:16)
[2018-03-16] MEDS: ATORVASTATIN 40 MG TABLET PO SCH (20:16)
[2018-03-16] MEDS: ZOLPIDEM 5 MG TABLET PO PRN (23:14)
[2018-03-17 00:42] VITALS: BP 102/60
[2018-03-17] MEDS ORDERED: IV D5 1/2 NS 1000 ML 1,000 ML IV SCH (01:00)
[2018-03-17] MEDS: HYDROCODONE/APAP 5-325MG TABLET PO PRN ×2 (04:52→11:15)
[2018-03-17 04:59] VITALS: BP 103/64
--- NOTE | 2018-03-17 06:07 | NUR ---
NURSING NOTES Patient rested well in between care; no acute distress; c/o pain 2x, and addressed accordingly; family at bedside; new IV to left hand; needs attended; SR on tele. continue to monitor; continue plan of care.
[2018-03-17] MEDS: PANTOPRAZOLE SODIUM 40 MG TABLET.DR PO SCH (06:48)
--- NOTE | 2018-03-17 07:22 | NUR ---
PATIENT RESTING COMFORTABLY IN BED AT THIS TIME. SIGNS OF DISTRESS. NO COMPLAINTS OF CHEST PAIN AT THIS TIME. SR ON TELE. AMBULATES WITH CANE TO RESTROOM WITH ASSISTANCE. BED ALARM ON. CALL LIGHT WITHIN REACH OF PATIENT. SAFETY MEASURES IMPLEMENTED. WILL CONTINUE TO MONITOR. POSSIBLE DISCHARGE TODAY.
[2018-03-17] MEDS: LAMOTRIGINE 100 MG TABLET PO SCH (08:35)
[2018-03-17] MEDS: DESVENLAFAXINE SUCCINATE 50MG PO SCH (08:35)
[2018-03-17] MEDS: VIIBRYD 40 MG PO SCH (08:35)
[2018-03-17] MEDS: METOPROLOL TARTRATE 25 MG TABLET PO SCH (08:35)
[2018-03-17] MEDS: MULTIVITAMINS,THERAPEUTIC TABLET PO SCH (08:35)
[2018-03-17] MEDS: AMIODARONE HCL 200 MG TABLET PO SCH (08:35)
[2018-03-17 09:05] VITALS: BP 98/61
[2018-03-17] MEDS: GUAIFENESIN/CODEINE 5 ML LIQUID UDC PO PRN (09:32)
[2018-03-17 11:00] VITALS: BP 119/68
--- NOTE | 2018-03-17 12:10 | NUR ---
PATIENT DISCHARGED TO [facility] AT THIS TIME IN STABLE CONDITION, REPORT GIVEN TO KI AT FACILITY. BELONGINGS RETURNED. DISCHARGE DOCUMENTATION COMPLETED AND COPY PROVIDED TO PATIENT/FACILITY. NEW PRESCRIPTIONS PROVIDED. IV-DISCONNECTED, ID BAND TAKEN OFF. PATIENT DISCHARGED FROM [facility] SAF[facility].
== END 2018-03-17 12:10 | DRG 871 ==
LOC: ER 20:58 → CCU 23:29 → TELE-TD 03-13 07:26 → TELE 03-14 10:22 → TELE-TD 03-14 15:12 → CCU 03-14 18:22 → TELE 03-15 17:44
PROVIDERS: ADMIT Internal Medicine; ATTEND Nurse Practitioner Acute Care
DX: A41.9 Sepsis, unspecified organism (principal); N17.0 Acute kidney failure with tubular necrosis; I48.3 Typical atrial flutter; J20.9 Acute bronchitis, unspecified; M94.0 Chondrocostal junction syndrome [Tietze]; F95.2 Tourette's disorder; Z87.891 Personal history of nicotine dependence; Z79.01 Long term (current) use of anticoagulants; Z79.899 Other long term (current) drug therapy; I48.0 Paroxysmal atrial fibrillation; E86.0 Dehydration; E78.5 Hyperlipidemia, unspecified; M89.9 Disorder of bone, unspecified; F90.9 Attention-deficit hyperactivity disorder, unspecified type; R40.4 Transient alteration of awareness; I10 Essential (primary) hypertension; I44.30 Unspecified atrioventricular block; G89.29 Other chronic pain; E88.09 Other disorders of plasma-protein metabolism, not elsewhere classified; R73.9 Hyperglycemia, unspecified; F32.9 Major depressive disorder, single episode, unspecified; G47.9 Sleep disorder, unspecified
CPT/HCPCS: 36415; 70030-TC; 70450; 71045; 83735; 84100; 84156; 84300; 84443; 85025; 85730; 87070; 87086; 87400; 93005; 93307; 94664; 97110; 97116; 97530; A4663; G0378; J0282; J0696; J2270; J3475; J3590; J7030; J7060

== ENCOUNTER 2018-05-27 12:47 | Emergency (ER) | payer BC ==
[~2018-05-27] VITALS: Ht 175.3 cm; Wt 78.0 kg
[~2018-05-27 12:47] MED LIST changes: +AMIO200T6 PO; -ATOM100C PO; -ATOR10TA PO; +ATOR40TA29 PO; -CLON0.1T14 PO; -DESV100T PO; +DESV50TA PO; +LAMO100T2 PO; -MAGN400O6 PO; -PANT40TA2 PO; -VILA10TA PO; +VILA40TA PO
--- NOTE | 2018-05-27 13:36 | NUR ---
Patient discharged to home in stable conditon. Written and verbal after care instructions given. Patient verbalizes understanding of instructions.
== END 2018-05-27 13:37 | disposition home or self-care (01) ==
LOC: ER 12:47
DX: S92.351A Displaced fracture of fifth metatarsal bone, right foot, initial encounter for closed fracture (principal); I10 Essential (primary) hypertension; E78.00 Pure hypercholesterolemia, unspecified; I48.91 Unspecified atrial fibrillation; Z88.8 Allergy status to other drugs, medicaments and biological substances; Z79.899 Other long term (current) drug therapy; X50.1XXA Overexertion from prolonged static or awkward postures, initial encounter; Y93.89 Activity, other specified; Y92.89 Other specified places as the place of occurrence of the external cause; Y99.8 Other external cause status
CPT/HCPCS: 73610; 73630; A4663

== ENCOUNTER 2018-06-13 23:27 | Emergency (ER) | payer BC ==
[~2018-06-13] VITALS: Ht 175.3 cm; Wt 78.0 kg
[2018-06-14] MEDS ORDERED: LIDOCAINE HCL 2% 20 ML VIAL TP ONE
--- NOTE | 2018-06-14 00:10 | NUR ---
Wound care done, pressure applied. No s/s of active bleeding noted. Patient discharged to home in stable conditon. Written and verbal after care instructions given. Patient verbalizes understanding of instructions. Patient ambulated out of ER with assitance by .
[2018-06-14 00:12] VITALS: BP 106/68
== END 2018-06-14 00:11 | disposition home or self-care (01) ==
LOC: ER 23:29
DX: L02.413 Cutaneous abscess of right upper limb (principal); I10 Essential (primary) hypertension; I48.91 Unspecified atrial fibrillation; E78.00 Pure hypercholesterolemia, unspecified; Z88.8 Allergy status to other drugs, medicaments and biological substances; Z79.899 Other long term (current) drug therapy
CPT/HCPCS: 10060; 99283; J3490; A4663

== ENCOUNTER 2018-11-29 13:32 | Inpatient (IN) | payer BC, MEDICARE, OTHER ==
[~2018-11-29] VITALS: Ht 175.3 cm; Wt 86.2 kg
[2018-11-29] MEDS ORDERED: PARO25TA16 PO (14:18)
[2018-11-29 14:31] LABS: BASOPHILS # (AUTO) 0.1 K/uL (0.0-8.0); BASOPHILS % (AUTO) 0.9 % (0.0-2.0); EOSINOPHILS # (AUTO) 0.2 K/uL (0.0-0.7); EOSINOPHILS % (AUTO) 2.2 % (0.0-7.0); HEMATOCRIT 43.5 % (36.7-47.1); HEMOGLOBIN 14.5 g/dL (12.5-16.3); LYMPHOCYTES # (AUTO) 3.6 K/uL (20.0-40.0); LYMPHOCYTES % (AUTO) 46.9 % (20.5-51.5); MEAN CORPUSCULAR HEMOGLOBIN 32.5 uug (23.8-33.4); MEAN CORPUSCULAR HGB CONC 33 g/dL (32.5-36.3); MEAN CORPUSCULAR VOLUME 97.8 fL (73.0-96.2); MONOCYTES # (AUTO) 0.7 K/uL (2.0-10.0); MONOCYTES % (AUTO) 8.5 % (0.0-11.0); NEUTROPHILS # (AUTO) 3.2 K/uL (1.8-8.9); NEUTROPHILS % (AUTO) 41.5 % (38.5-71.5); PLATELET COUNT (AUTO) 145 K/uL (152-348); RED BLOOD CELL COUNT(AUTO) 4.45 MIL/uL (4.06-5.63); WHITE BLOOD COUNT (AUTO) 7.7 K/uL (3.6-10.2)
[2018-11-29] MEDS ORDERED: PYRI-6 PO (14:31)
[2018-11-29] MEDS ORDERED: UBID50TA3 PO (14:31)
[2018-11-29] MEDS ORDERED: CYAN100T3 PO (14:31)
[2018-11-29] MEDS ORDERED: OMEG1CAP40 PO (14:31)
[2018-11-29] MEDS ORDERED: FOLI1TAB16 PO (14:31)
[2018-11-29] MEDS ORDERED: CHOL200074 PO (14:31)
[2018-11-29 14:42] LABS: CREATININE 1.3 mg/dL (0.6-1.3); POTASSIUM 5.2 mmol/L (3.5-5.1)
[2018-11-29 14:56] LABS: BILIRUBIN,DIRECT 0.2 mg/dL (0.0-0.2); BILIRUBIN,TOTAL 0.6 mg/dL (0.2-1.0); TOTAL PROTEIN, SERUM 7.1 g/dL (6.4-8.2)
--- NOTE | 2018-11-29 15:00 | NUR ---
Pt to be admitted to tele, from [facility] in to see pt.
[2018-11-29] MEDS ORDERED: IV NORMAL SALINE 500 ML BAG IV ONE (15:15)
--- NOTE | 2018-11-29 15:55 | NUR ---
SBAR report given to Lacey RN via telephone. Pt resting with NAD noted at this time.
--- NOTE | 2018-11-29 16:30 | NUR ---
RECEIVED PATIENT FROM ER VIA GURNEY WITH DIAGNOSIS OF AMS AND PRE SYNCOPE. NO SOB NOTED NO C/O PAIN NOTED AT THIS TIME, PATIENT IS PATIENT CONTINUE TO REFUSED PO MEDICATIONS, UNCOOPERATIVE WITH CARE, NO FURTHER EPISODE OF VAGINAL BLEEDING NOTED AT THIS TIME. PATIENT VOIDING FREELY, CONT TO MONITOR. AMBULATORY, IN ROOM AIR, IV INTACT ON LEFT HAND. BELONGINGS ACCOUNTED FOR AND SIGNED. CAME WITH MD SUNDAY AWARE PATIENT ADMITTED IN THE UNIT.
--- NOTE | 2018-11-29 16:33 | NUR ---
Pt trans to tele floor, NAD noted.
[2018-11-29] MEDS: BLOOD SUGAR DIAGNOSTIC 1 EACH STRIP VI SCH ×2 (17:29→20:08)
[2018-11-29 17:52] VITALS: BP 111/68
[2018-11-29] MEDS ORDERED: BLOOD SUGAR DIAGNOSTIC 1 EACH STRIP VI SCH (18:00)
--- NOTE | 2018-11-29 18:55 | NUR ---
PATIENT ALERT AND ORIENTED X4, NO SOB NOTED AND NO C/O PAIN NOTED AT THIS TIME, IV INTACT AND PATENT, WILL CONTINUE TREATMENT PLAN.
--- NOTE | 2018-11-29 20:00 | NUR ---
Received patient sitting in bed. HOB elevated. Partner at bedside. Patient is awake alert and oriented x 3 but takes time to think about answers. Noted bilateral hand tremors. In room air. TELE is SR at 60. snf assessment done. Safety initiated. Call light within reach. Will continue to monitor.
[2018-11-29 20:08] VITALS: BP 107/68
[2018-11-29] MEDS: ACETAMINOPHEN 325 MG TABLET PO PRN (20:40)
--- NOTE | 2018-11-29 20:42 | NUR ---
C/O headache 10/31. Tylenol given. Will continue to monitor.
[2018-11-30] MEDS ORDERED: FOLIC ACID 1 MG TABLET PO SCH
[2018-11-30] MEDS ORDERED: Medication Not On Formulary EA (Vilazodone Hydrochloride (Viibryd) 20 MG) PO SCH
[2018-11-30] MEDS ORDERED: Medication Not On Formulary EA (Omega-3 Fatty Acids/Fish Oil (Omega 3 1,000 Mg Softgel) PO SCH
[2018-11-30] MEDS ORDERED: PAROXETINE HCL PO SCH
[2018-11-30] MEDS ORDERED: PYRIDOXINE HCL 100 MG PO SCH
[2018-11-30] MEDS ORDERED: Medication Not On Formulary EA (Apixaban (Eliquis) 5 MG) PO SCH
[2018-11-30] MEDS ORDERED: UBIDECARENONE 200 MG PO SCH
[2018-11-30] MEDS ORDERED: LAMOTRIGINE 100 MG TABLET PO ONE (00:15)
[2018-11-30] MEDS: MULTIVITAMINS,THERAPEUTIC TABLET PO SCH ×2 (00:31→08:13)
[2018-11-30] MEDS: ATORVASTATIN 40 MG TABLET PO SCH ×2 (00:31→20:28)
[2018-11-30] MEDS: CYANOCOBALAMIN 1,000 MCG TABLET PO SCH ×2 (00:31→09:32)
[2018-11-30] MEDS: METOPROLOL TARTRATE 25 MG TABLET PO SCH ×3 (00:32→16:23)
[2018-11-30] MEDS: TAMSULOSIN HCL 0.4 MG CAP.SR.24H PO SCH ×2 (00:32→20:28)
[2018-11-30 04:00] VITALS: BP 102/58
--- NOTE | 2018-11-30 05:33 | NUR ---
Patient slept intermittently t/o shift. No acute distress noted. TELE SB SR at 56. No neuro changes noted. Orthostatic BP done. Patient is asleep at the moment with no acute distress. Safety and comfort measures maintained t/o shift. Vital signs stable. All meds given as ordered. All needs met.
[2018-11-30] MEDS: PANTOPRAZOLE SODIUM 40 MG TABLET.DR PO SCH (06:27)
[2018-11-30] MEDS: BLOOD SUGAR DIAGNOSTIC 1 EACH STRIP VI SCH ×2 (06:30→11:43)
[2018-11-30 06:31] LABS: BASOPHILS % (AUTO) 0.6 % (0.0-2.0); EOSINOPHILS # (AUTO) 0.2 K/uL (0.0-0.7); EOSINOPHILS % (AUTO) 2.7 % (0.0-7.0); LYMPHOCYTES # (AUTO) 4.6 K/uL (20.0-40.0); LYMPHOCYTES % (AUTO) 63.4 % (20.5-51.5); MEAN CORPUSCULAR HEMOGLOBIN 33.2 uug (23.8-33.4); MEAN CORPUSCULAR HGB CONC 34 g/dL (32.5-36.3); MEAN CORPUSCULAR VOLUME 97.3 fL (73.0-96.2); MONOCYTES # (AUTO) 0.5 K/uL (2.0-10.0); MONOCYTES % (AUTO) 7.2 % (0.0-11.0); NEUTROPHILS # (AUTO) 1.9 K/uL (1.8-8.9); NEUTROPHILS % (AUTO) 26.1 % (38.5-71.5); PLATELET COUNT (AUTO) 143 K/uL (152-348); RED BLOOD CELL COUNT(AUTO) 4.22 MIL/uL (4.06-5.63); WHITE BLOOD COUNT (AUTO) 7.2 K/uL (3.6-10.2)
[2018-11-30 06:39] LABS: BILIRUBIN,TOTAL 0.4 mg/dL (0.2-1.0); CREATININE 1.3 mg/dL (0.6-1.3); POTASSIUM 4.8 mmol/L (3.5-5.1); TOTAL PROTEIN, SERUM 6.8 g/dL (6.4-8.2)
[2018-11-30 06:46] LABS: THYROID STIMULATING HORMONE 2.507 mIU/mL (0.358-3.740)
--- NOTE | 2018-11-30 07:35 | NUR ---
Received patient in bed asleep, not in distress at this time. w/ IV saline lock on left hand. Will continue to monitor
[2018-11-30] MEDS: DOCUSATE SODIUM 100 MG CAPSULE PO SCH (08:14)
[2018-11-30] MEDS: OMEGA-3 FATTY ACIDS/FISH OIL CAPSULE PO SCH (08:14)
[2018-11-30] MEDS: PAROXETINE HCL 20 MG TABLET PO SCH (08:14)
[2018-11-30] MEDS ORDERED: ASPIRIN EC 81 MG TABLET.DR PO SCH (09:00)
[2018-11-30] MEDS ORDERED: LAMOTRIGINE 100 MG TABLET PO SCH (09:00)
[2018-11-30] MEDS ORDERED: APIXABAN 5 MG TABLET PO ONE (09:00)
[2018-11-30] MEDS: PYRIDOXINE HCL 100 MG TABLET PO SCH (09:33)
[2018-11-30 11:00] VITALS: BP 111/66
[2018-11-30 15:00] VITALS: BP 118/72
[2018-11-30] MEDS: APIXABAN 5 MG TABLET**PATIENT'S OWN MED PO SCH (16:22)
--- NOTE | 2018-11-30 18:15 | NUR ---
Patient is A&Ox3, no episodes of confusion. Accuchecks discontinued. Seen by PT and Neuro Henry LEAF SORTER. Not in distress this shift. Patient able to ambulate using his cane.
--- NOTE | 2018-11-30 20:05 | NUR ---
Received patient walking around with hiking sticks and partner right beside him. Patient is awake alert and oriented x 3 but takes time to think about answers. No acute distress noted. Noted bilateral hand tremors. In room air. TELE is SR at 62. Safety initiated. Call light within reach. Will continue to monitor.
[2018-11-30 20:06] VITALS: BP 124/73
[2018-11-30] MEDS: ACETAMINOPHEN 325 MG TABLET PO PRN (23:40)
--- NOTE | 2018-11-30 23:40 | NUR ---
Patient c/o eye pain. Patient says "this has happened before, and took pain medication and eye drops for it". Tylenol given will reach out to the MD and will continue to monitor.
[2018-12-01 00:07] VITALS: BP 109/68
[2018-12-01] MEDS ORDERED: POLYVINYL ALCOHOL OPHT DROPS 15 ML BOTTLE EACHEYE PRN (01:00)
[2018-12-01] MEDS ORDERED: HYDROCODONE/APAP 5-325MG TABLET PO PRN (01:00)
[2018-12-01] MEDS: HYDROCODONE/APAP 5-325MG TABLET PO PRN ×4 (01:48→21:03)
[2018-12-01 04:00] VITALS: BP 98/66
--- NOTE | 2018-12-01 05:33 | NUR ---
Patient slept intermittently t/o shift. No acute distress noted. Remains A/O x 3. TELE SB SR at 55. No neuro changes noted. Patient is asleep at the moment with no acute distress. Denies eye pain at the moment. Safety and comfort measures maintained t/o shift. Vital signs stable. All meds given as ordered. All needs met.
[2018-12-01] MEDS: PANTOPRAZOLE SODIUM 40 MG TABLET.DR PO SCH (06:09)
[2018-12-01 06:33] LABS: BASOPHILS % (AUTO) 0.5 % (0.0-2.0); EOSINOPHILS # (AUTO) 0.2 K/uL (0.0-0.7); EOSINOPHILS % (AUTO) 2.7 % (0.0-7.0); HEMATOCRIT 41.3 % (36.7-47.1); HEMOGLOBIN 14.2 g/dL (12.5-16.3); LYMPHOCYTES # (AUTO) 5.2 K/uL (20.0-40.0); LYMPHOCYTES % (AUTO) 59.3 % (20.5-51.5); MEAN CORPUSCULAR HEMOGLOBIN 33.1 uug (23.8-33.4); MEAN CORPUSCULAR HGB CONC 34 g/dL (32.5-36.3); MEAN CORPUSCULAR VOLUME 96.6 fL (73.0-96.2); MONOCYTES # (AUTO) 0.6 K/uL (2.0-10.0); MONOCYTES % (AUTO) 6.9 % (0.0-11.0); NEUTROPHILS # (AUTO) 2.7 K/uL (1.8-8.9); NEUTROPHILS % (AUTO) 30.6 % (38.5-71.5); PLATELET COUNT (AUTO) 155 K/uL (152-348); RED BLOOD CELL COUNT(AUTO) 4.28 MIL/uL (4.06-5.63); WHITE BLOOD COUNT (AUTO) 8.8 K/uL (3.6-10.2)
[2018-12-01 06:41] LABS: CREATININE 1.2 mg/dL (0.6-1.3); MAGNESIUM 1.9 mg/dL (1.8-2.4); PHOSPHOROUS 3.4 mg/dL (2.5-4.9); POTASSIUM 4.1 mmol/L (3.5-5.1)
--- NOTE | 2018-12-01 07:10 | NUR ---
RECEIVED PATIENT SLEEPING IN BED, NO DISTRESS NOTED. BED IN LOWEST POSITION, SIDE RAILS UPX2, CALL LIGHT WITHIN REACH. WILL CONTINUE TO MONITOR.
[2018-12-01] MEDS: MULTIVITAMINS,THERAPEUTIC TABLET PO SCH (08:27)
[2018-12-01] MEDS: PAROXETINE HCL 20 MG TABLET PO SCH (08:27)
[2018-12-01] MEDS: OMEGA-3 FATTY ACIDS/FISH OIL CAPSULE PO SCH (08:27)
[2018-12-01] MEDS: DOCUSATE SODIUM 100 MG CAPSULE PO SCH (08:28)
[2018-12-01] MEDS: PYRIDOXINE HCL 100 MG TABLET PO SCH (08:28)
[2018-12-01] MEDS: LAMOTRIGINE 100 MG TABLET PO SCH ×2 (08:28→20:59)
[2018-12-01] MEDS: FOLIC ACID 1 MG TABLET PO SCH (08:28)
[2018-12-01] MEDS: APIXABAN 5 MG TABLET**PATIENT'S OWN MED PO SCH ×2 (08:29→17:34)
[2018-12-01] MEDS: CYANOCOBALAMIN 1,000 MCG TABLET PO SCH (08:29)
--- NOTE | 2018-12-01 09:25 | NUR ---
PATIENT COMPLAIN OF PAIN IN UPPER CHEST STATES THAT HAPPENED BEFORE, PATIENT STATES TO GIVE NORCO AND IT WILL REOLVED, NORCO GIVEN, WILL CONTINUE TO MONITOR.
[2018-12-01] MEDS ORDERED: LAMO100T2 PO (10:08)
[2018-12-01 11:58] VITALS: BP 109/69
[2018-12-01 15:29] VITALS: BP 115/75
--- NOTE | 2018-12-01 18:04 | NUR ---
Patient in Bed, Awake and verbally responsive. No signs of Respiratory distress noted. No SOB. PRN Pain medication was given for Chest Pain verbalized Pain of 7/10. verbalized effectiveness after [address] Campbell with Order OT eval, All needs attended and met. Kept the call light within easy reach.
--- NOTE | 2018-12-01 18:45 | NUR ---
Patient walking around unit with girlfriend Margie. Patient noted with steady gait, no distress noted.
[2018-12-01 20:02] VITALS: BP 107/75
[2018-12-01] MEDS: ATORVASTATIN 40 MG TABLET PO SCH (20:59)
[2018-12-01] MEDS: TAMSULOSIN HCL 0.4 MG CAP.SR.24H PO SCH (20:59)
[2018-12-02] MEDS: HYDROCODONE/APAP 5-325MG TABLET PO PRN ×4 (03:43→21:45)
[2018-12-02] MEDS: PANTOPRAZOLE SODIUM 40 MG TABLET.DR PO SCH (05:50)
[2018-12-02 06:10] VITALS: BP 136/86
--- NOTE | 2018-12-02 07:03 | NUR ---
Pt resting well in between care; no acute distress; ambulating on the hallway with SO; c/o pain twice and medicated accordingly.; safety maintained; continue to monitor; continue plan of care.
[2018-12-02] MEDS: PAROXETINE HCL 20 MG TABLET PO SCH (08:34)
[2018-12-02] MEDS: DOCUSATE SODIUM 100 MG CAPSULE PO SCH (08:34)
[2018-12-02] MEDS: OMEGA-3 FATTY ACIDS/FISH OIL CAPSULE PO SCH (08:34)
[2018-12-02] MEDS: MULTIVITAMINS,THERAPEUTIC TABLET PO SCH (08:35)
[2018-12-02] MEDS: FOLIC ACID 1 MG TABLET PO SCH (08:35)
[2018-12-02] MEDS: CYANOCOBALAMIN 1,000 MCG TABLET PO SCH (08:35)
[2018-12-02] MEDS: LAMOTRIGINE 100 MG TABLET PO SCH ×2 (08:36→20:14)
[2018-12-02] MEDS: PYRIDOXINE HCL 100 MG TABLET PO SCH (08:37)
[2018-12-02] MEDS: APIXABAN 5 MG TABLET**PATIENT'S OWN MED PO SCH ×2 (08:38→17:27)
--- NOTE | 2018-12-02 08:41 | NUR ---
Patient awake, in bed, alert, not in any form of distress. He denies any pain or discomfort at this time. Due medications administered and tolerated well. Call light and frequently used items placed within reach.
[2018-12-02 11:23] VITALS: BP 116/76
[2018-12-02 15:22] VITALS: BP 114/65
[2018-12-02 19:31] VITALS: BP 132/66
[2018-12-02] MEDS: TAMSULOSIN HCL 0.4 MG CAP.SR.24H PO SCH (20:14)
[2018-12-02] MEDS: ATORVASTATIN 40 MG TABLET PO SCH (20:14)
--- NOTE | 2018-12-02 20:30 | NUR ---
IV site is red, painful, and swollen. IV was removed.
--- NOTE | 2018-12-02 21:00 | NUR ---
Continuing to apply the ice pack to the infiltrated IV site on the Lt. wrist
[2018-12-03] MEDS: HYDROCODONE/APAP 5-325MG TABLET PO PRN ×2 (04:02→10:05)
--- NOTE | 2018-12-03 04:10 | NUR ---
Patient is screaming in pain, C/ of pain above 10 on the left wrist. Posterior hand and wrist are mildly swollen and reddened. [place] given, new ice pack given. patient reports the IV was not used or flushed in the last 2 days.
[2018-12-03 04:23] VITALS: BP 116/70
[2018-12-03] MEDS: PANTOPRAZOLE SODIUM 40 MG TABLET.DR PO SCH (06:35)
--- NOTE | 2018-12-03 08:00 | NUR ---
AWAKE ALERT AND ORIENTED X3, NO SS OF PAIN OR DISTRESS. CONTINUE WITH OBSSERVATION. DC PLANNING IN PLACED
[2018-12-03] MEDS: OMEGA-3 FATTY ACIDS/FISH OIL CAPSULE PO SCH (08:18)
[2018-12-03] MEDS: CYANOCOBALAMIN 1,000 MCG TABLET PO SCH (08:18)
[2018-12-03] MEDS: FOLIC ACID 1 MG TABLET PO SCH (08:18)
[2018-12-03] MEDS: MULTIVITAMINS,THERAPEUTIC TABLET PO SCH (08:18)
[2018-12-03] MEDS: PAROXETINE HCL 20 MG TABLET PO SCH (08:18)
[2018-12-03] MEDS: DOCUSATE SODIUM 100 MG CAPSULE PO SCH (08:18)
[2018-12-03] MEDS: ACETAMINOPHEN 325 MG TABLET PO PRN (08:18)
[2018-12-03] MEDS: LAMOTRIGINE 100 MG TABLET PO SCH (08:19)
[2018-12-03] MEDS: PYRIDOXINE HCL 100 MG TABLET PO SCH (08:21)
[2018-12-03] MEDS: APIXABAN 5 MG TABLET**PATIENT'S OWN MED PO SCH (08:22)
--- NOTE | 2018-12-03 10:00 | NUR ---
SEEN BY HOSPITALIST CONTINUE DISCHARGE PLANNING PLANNED
[2018-12-03 11:49] VITALS: BP_SYST 110; BP_SYST 125; BP_DIAS 71; BP_DIAS 76
[2018-12-03 11:52] VITALS: BP 110/71
--- NOTE | 2018-12-03 13:28 | NUR ---
PICKED UP BY [facility]. REPORT GIVEN TO [facility] L[facility]IE RIOS AND AMBULANCE STAFF
== END 2018-12-03 13:33 | DRG 93 ==
LOC: ER 13:34 → TELE3 15:59 → MEDSURG3 12-01 13:12
PROVIDERS: ADMIT Student in an Organized Health Care Education/Training Program; ATTEND Student in an Organized Health Care Education/Training Program
DX: G92 Toxic encephalopathy (principal); T42.6X5A Adverse effect of other antiepileptic and sedative-hypnotic drugs, initial encounter; Y92.019 Unspecified place in single-family (private) house as the place of occurrence of the external cause; E86.0 Dehydration; Z86.73 Personal history of transient ischemic attack (TIA), and cerebral infarction without residual deficits; F95.2 Tourette's disorder; F32.9 Major depressive disorder, single episode, unspecified; Z79.899 Other long term (current) drug therapy; N40.0 Benign prostatic hyperplasia without lower urinary tract symptoms; Z79.01 Long term (current) use of anticoagulants; R29.706 NIHSS score 6; F90.9 Attention-deficit hyperactivity disorder, unspecified type; D69.6 Thrombocytopenia, unspecified; R79.89 Other specified abnormal findings of blood chemistry; E78.5 Hyperlipidemia, unspecified; G25.0 Essential tremor; Z87.891 Personal history of nicotine dependence; I10 Essential (primary) hypertension; R40.2242 Coma scale, best verbal response, confused conversation, at arrival to emergency department; R40.2362 Coma scale, best motor response, obeys commands, at arrival to emergency department
CPT/HCPCS: 36415; 70030-TC; 70450; 83735; 84100; 84443; 85025; 85730; 92507; 92523; 93005; 93307; 93880; 97110; 97116; 97165; 97530; A4663; G0378

== ENCOUNTER 2021-01-18 21:03 | Emergency (ER) | payer BC ==
[~2021-01-18] VITALS: Ht 172.7 cm; Wt 78.0 kg
[~2021-01-18 21:03] MED LIST changes: -ACET325T53 PO; -AMIO200T6 PO; +CHOL200074 PO; +CYAN100T44 PO; -DESV50TA PO; +FOLI1TAB94 PO; -METO25TA6 PO; +MULT-594 PO; -MULT1TAB73 PO; +OMEG1CAP40 PO; +PARO25TA16 PO; +PYRI-6 PO; +UBID50TA3 PO; -VILA40TA PO
--- NOTE | 2021-01-18 21:36 | NUR ---
Dr. Jenkins at bedside for MSE.
--- NOTE | 2021-01-18 21:43 | NUR ---
Xray at bedside.
[2021-01-18] MEDS ORDERED: IV NORMAL SALINE 500 ML BAG IV ONE (21:45)
[2021-01-18 21:49] LABS: HEMATOCRIT 43.9 % (36.7-47.1); MEAN CORPUSCULAR HEMOGLOBIN 34.1 uug (23.8-33.4); MEAN CORPUSCULAR VOLUME 98.5 fL (73.0-96.2); PLATELET COUNT (AUTO) 184 K/uL (152-348)
[2021-01-18 21:56] LABS: CREATININE 1.1 mg/dL (0.6-1.3); POTASSIUM 3.8 mmol/L (3.5-5.1)
[2021-01-18 22:09] LABS: BILIRUBIN,DIRECT 0.2 mg/dL (0.0-0.2); BILIRUBIN,TOTAL 0.4 mg/dL (0.2-1.0); TOTAL PROTEIN, SERUM 7.4 g/dL (6.4-8.2)
--- NOTE | 2021-01-18 22:30 | NUR ---
Pt here for dizziness, palpitations starting 5 hrs prior to arrival. Pt denies chest pain, LEMOS, changes in vision. Pt has hx of afib.
--- NOTE | 2021-01-19 02:18 | NUR ---
Patient discharged to home in stable condition. Written and verbal after care instructions given. Patient verbalizes understanding of instructions. Stressed follow up or return to ER for worsening s/s. Pt walks with steady gait. All belongings taken home by patient. No signs of distress. Vss. IV removed.
[2021-01-19 02:19] VITALS: BP 107/64
== END 2021-01-19 02:02 | disposition home or self-care (01) ==
LOC: ER 21:04
DX: R00.2 Palpitations (principal); R94.31 Abnormal electrocardiogram [ECG] [EKG]; F95.2 Tourette's disorder; E78.00 Pure hypercholesterolemia, unspecified; Z79.01 Long term (current) use of anticoagulants; G47.30 Sleep apnea, unspecified; Z87.898 Personal history of other specified conditions; Z79.899 Other long term (current) drug therapy; I44.0 Atrioventricular block, first degree; R03.0 Elevated blood-pressure reading, without diagnosis of hypertension
CPT/HCPCS: 36415; 70030-TC; 71045; 85025; 85730; 93005; A4663; J7040

== ENCOUNTER 2021-04-27 20:32 | Emergency (ER) | payer BC ==
[~2021-04-27] VITALS: Ht 175.3 cm; Wt 78.0 kg
[2021-04-27] MEDS ORDERED: DOCUSATE SODIUM 100 MG/10 ML LIQUID UDC NG ONE (20:45)
[2021-04-27] MEDS ORDERED: DOCUSATE SODIUM 100 MG/10 ML LIQUID UDC ONE (20:56)
--- NOTE | 2021-04-27 21:20 | NUR ---
After irrigating ear patient states he feels better. ERMD into re eval patient.
--- NOTE | 2021-04-27 21:24 | NUR ---
Patient discharged to home in stable condition. Written and verbal after care instructions given. Patient verbalizes understanding of instructions. Stressed follow up or return to ER for worsening s/s.
[2021-04-27 21:25] VITALS: BP 129/79
== END 2021-04-27 21:25 | disposition home or self-care (01) ==
LOC: ER 20:36
DX: H61.21 Impacted cerumen, right ear (principal); F95.2 Tourette's disorder; Z79.01 Long term (current) use of anticoagulants; Z79.899 Other long term (current) drug therapy; I48.91 Unspecified atrial fibrillation; F32.A Depression, unspecified; R25.1 Tremor, unspecified; Z88.8 Allergy status to other drugs, medicaments and biological substances
CPT/HCPCS: A4217; A4663

== ENCOUNTER 2021-07-23 11:41 | Emergency (ER) | payer BC ==
[~2021-07-23] VITALS: Ht 172.7 cm; Wt 81.6 kg
[2021-07-23 12:10] LABS: HEMATOCRIT 41.5 % (36.7-47.1); MEAN CORPUSCULAR HEMOGLOBIN 33.6 uug (23.8-33.4); MEAN CORPUSCULAR VOLUME 99.8 fL (73.0-96.2); PLATELET COUNT (AUTO) 164 K/uL (152-348)
[2021-07-23 12:39] LABS: POTASSIUM 4.8 mmol/L (3.5-5.1)
[2021-07-23 12:44] LABS: BILIRUBIN,DIRECT 0.1 mg/dL (0.0-0.2); BILIRUBIN,TOTAL 0.4 mg/dL (0.2-1.0); TOTAL PROTEIN, SERUM 7.5 g/dL (6.4-8.2)
[2021-07-23 13:32] LABS: *BILIRUBIN,URIN NEGATIVE (NEGATIVE); *BLOOD, URINE 3+ (NEGATIVE); *CLARITY,URINE CLEAR (CLEAR); *COLOR,URINE YELLOW (YELLOW); *KETONES,URINE NEGATIVE (NEGATIVE); *UROBILINOGEN,URINE 0.2 E.U./dl (NORMAL); LEUKOCYTE ESTERASE ,URINE NEGATIVE (NEGATIVE); NITRITE, URINE NEGATIVE (NEGATIVE); PH,URINE 5.5 (5.0-8.0); UGLUCOSE NEGATIVE (NEGATIVE)
[2021-07-23 13:56] LABS: RBC,URINE 80-100 /HPF (0-3)
[2021-07-23 13:57] LABS: BACTERIA,URINE FEW /HPF (NONE SEEN); SQUAMOUS EPITHELIAL CELL,UR FEW /HPF (NONE SEEN); WBC,URINE 0-3 /HPF (0-3)
[2021-07-23 14:25] VITALS: BP 119/71
== END 2021-07-23 14:29 | disposition home or self-care (01) ==
LOC: ER 11:41
DX: R31.9 Hematuria, unspecified (principal); F95.2 Tourette's disorder; I48.91 Unspecified atrial fibrillation; Z79.01 Long term (current) use of anticoagulants; E78.00 Pure hypercholesterolemia, unspecified; N28.1 Cyst of kidney, acquired
CPT/HCPCS: 36415; 76700; 85025; 85730; 87086; A4663

== ENCOUNTER 2022-01-27 00:55 | Inpatient (IN) | payer BC ==
[~2022-01-27] VITALS: Ht 172.7 cm; Wt 76.7 kg
--- NOTE | 2022-01-27 01:03 | NUR ---
pt in room 1a says he has fast heart rate.
--- NOTE | 2022-01-27 01:29 | NUR ---
Dr. Frankel at bedside for MSE. pt denies sob or c/p says has fast heart rate.
[2022-01-27 01:52] LABS: MEAN CORPUSCULAR VOLUME 97.3 fL (73.0-96.2); PLATELET COUNT (AUTO) 221 K/uL (152-348)
[2022-01-27 01:55] LABS: CARBON DIOXIDE 25 mmol/L (21-32); CHLORIDE 105 mmol/L (98-107); CREATININE 1.3 mg/dL (0.6-1.3); GLUCOSE 94 mg/dL (74-106); POTASSIUM 3.6 mmol/L (3.5-5.1); UREA NITROGEN, BLOOD 29 mg/dL (7-18)
--- NOTE | 2022-01-27 02:03 | NUR ---
dr. Frankel would like to admit the pt. I asked Any the ER medical office clerk to check insurance for admission here.
[2022-01-27 02:05] LABS: ETHANOL < 3 MG/DL (0-0)
[2022-01-27 02:09] LABS: ALANINE AMINOTRANSFERASE 54 U/L (16-63); ALKALINE PHOSPHATASE 106 U/L (50-136); ASPARTATE AMINOTRANSFERASE 26 U/L (15-37); BILIRUBIN,DIRECT 0.1 mg/dL (0.0-0.2); BILIRUBIN,TOTAL 0.7 mg/dL (0.2-1.0); TOTAL PROTEIN, SERUM 8.2 g/dL (6.4-8.2)
[2022-01-27] MEDS ORDERED: IV NORMAL SALINE 500 ML IV ONE ×2 (02:15→02:45)
[2022-01-27] MEDS ORDERED: ATOR40TA PO (02:19)
[2022-01-27] MEDS ORDERED: RIVA20TA PO (02:19)
[2022-01-27] MEDS ORDERED: MODA200T44 PO (02:19)
[2022-01-27] MEDS ORDERED: PARO25TA16 PO (02:19)
[2022-01-27] MEDS ORDERED: HYDR-3980 PO (02:19)
--- NOTE | 2022-01-27 02:23 | NUR ---
Paged Epic panel cancellation clerk, waiting for Sherri Triana ROAD MECHANIC to call back.
[2022-01-27] MEDS ORDERED: ONDANSETRON 4 MG/2 ML VIAL IV PRN (02:30)
[2022-01-27] MEDS ORDERED: MAGNESIUM HYDROXIDE 30 ML LIQUID UDC PO PRN (02:30)
[2022-01-27] MEDS ORDERED: ACETAMINOPHEN 325 MG TABLET PO PRN (02:30)
[2022-01-27] MEDS ORDERED: REMEDY ESSENTIAL ZINC PASTE 113 GM TP PRN (02:30)
--- NOTE | 2022-01-27 02:40 | NUR ---
Sherri Lantigua called back and spoke with Dr. Frankel.
--- NOTE | 2022-01-27 02:46 | NUR ---
called to the third floor for a bed assignment they will call back.
--- NOTE | 2022-01-27 03:10 | NUR ---
called to third floor they state canno take the pt until after the change of shift.
[2022-01-27 05:45] LABS: *BILIRUBIN,URIN NEGATIVE (NEGATIVE); *CLARITY,URINE CLEAR (CLEAR); *COLOR,URINE YELLOW (YELLOW); *KETONES,URINE TRACE (NEGATIVE); *UROBILINOGEN,URINE 0.2 E.U./dl (NORMAL); LEUKOCYTE ESTERASE ,URINE NEGATIVE (NEGATIVE); NITRITE, URINE NEGATIVE (NEGATIVE); PH,URINE 6.5 (5.0-8.0); UGLUCOSE NEGATIVE (NEGATIVE)
[2022-01-27 06:11] LABS: *BLOOD, URINE TRACE (NEGATIVE)
[2022-01-27 06:13] LABS: BACTERIA,URINE NONE SEEN /HPF (NONE SEEN); SQUAMOUS EPITHELIAL CELL,UR FEW /HPF (NONE SEEN); WBC,URINE 0-3 /HPF (0-3)
[2022-01-27] MEDS: PANTOPRAZOLE SODIUM 40 MG TABLET.DR PO SCH (07:00)
[2022-01-27] MEDS ORDERED: PANTOPRAZOLE SODIUM 40 MG TABLET.DR PO ONE (07:22)
--- NOTE | 2022-01-27 08:45 | NUR ---
Labs done. Instructed pt to urinate on a cup and will send to lab. HIV RPR per lab will take aprroximately 30 mins to an hour.
--- NOTE | 2022-01-27 08:46 | NUR ---
report called in to [facility] TE[facility]. pt being admitted for syncope/afib. pt in stable condition.
--- NOTE | 2022-01-27 08:49 | NUR ---
Lanette/RAMSEY aware that the pt used the bathroom and was advised to wear PPE, gown and gloves to clean the bathroom.
[2022-01-27] MEDS ORDERED: UBIDECARENONE 200 MG PO SCH (09:00)
[2022-01-27] MEDS ORDERED: PAROXETINE HCL 25 MG PO SCH (09:00)
--- NOTE | 2022-01-27 09:16 | NUR ---
pt transfered to tele, report given to RAN CRUZ, pt in stable condition and has all belongings.
[2022-01-27] MEDS ORDERED: PARO20TA7 PO (09:26)
--- NOTE | 2022-01-27 09:30 | NUR ---
RECEIVED REPORT FROM MUSIC VIDEO PRODUCERANTHONY PIZARRO. PT CHIEF COMPLAIN IS PALPITATION. PT WAS DIAGNOSE OF SYNCOPE. PT IS AO X4. AMBULATORY. SKIN INTACT. PT HAVE A BALANCE ISSUE. HE IS WALKING WITH WALKING AT HOME. PT ON ROOM AIR; HAVE RFA 18G RUNNING ON 75CC/HR NS; AFIB ON TELE BUT CONVERTED WHEN MUSIC VIDEO PRODUCER INSERTED AN IV. PT WILL BE ADMITTED TO TELEMETRY ON RM 309.
[2022-01-27 10:16] VITALS: BP 112/60
[2022-01-27 11:12] VITALS: BP_SYST 102; BP_SYST 132; BP_SYST 137; BP_DIAS 65; BP_DIAS 73; BP_DIAS 77
[2022-01-27 11:32] VITALS: BP 126/63
[2022-01-27] MEDS: CYANOCOBALAMIN 1,000 MCG TABLET PO SCH (11:33)
[2022-01-27] MEDS: PYRIDOXINE HCL 100 MG TABLET PO SCH (11:33)
[2022-01-27] MEDS: PAROXETINE HCL 20 MG TABLET PO SCH (11:33)
[2022-01-27] MEDS: OMEGA-3 FATTY ACIDS/FISH OIL CAPSULE PO SCH (11:33)
[2022-01-27] MEDS: FOLIC ACID 1 MG TABLET PO SCH (11:33)
[2022-01-27] MEDS: LAMOTRIGINE 100 MG TABLET PO SCH ×2 (11:34→21:32)
[2022-01-27] MEDS: MODAFINIL 100 MG TABLET PO SCH (11:34)
[2022-01-27] MEDS: MULTIVITAMINS,THERAPEUTIC TABLET PO SCH (11:34)
[2022-01-27 16:00] VITALS: BP 104/72
[2022-01-27] MEDS: RIVAROXABAN 10 MG TABLET PO SCH (18:45)
--- NOTE | 2022-01-27 18:48 | NUR ---
PT AOX4. SELF CARE. NO ACUTE DISTRESS NOTED. NO PAIN NOTED. NO COMPLAIN OF DIZZINESS.
[2022-01-27 20:00] VITALS: BP 128/77
--- NOTE | 2022-01-27 20:00 | NUR ---
patient in bed aaox4 able to verbalized needs .patient watching tv at this time .
[2022-01-27] MEDS: ATORVASTATIN 40 MG TABLET PO SCH (21:31)
[2022-01-27] MEDS: IV NS 1000 ML 1,000 ML IV PRN (21:43)
[2022-01-28] VITALS: BP 134/76
--- NOTE | 2022-01-28 01:16 | NUR ---
CALLED [facility] FOR SLEEPING MEDICATION PER PATIENT REQUEST .
[2022-01-28] MEDS: ZOLPIDEM 5 MG TABLET PO PRN ×2 (02:08→22:09)
[2022-01-28 04:00] VITALS: BP 135/77
[2022-01-28] MEDS: PANTOPRAZOLE SODIUM 40 MG TABLET.DR PO SCH (06:18)
[2022-01-28 06:24] LABS: MEAN CORPUSCULAR VOLUME 98.2 fL (73.0-96.2); PLATELET COUNT (AUTO) 156 K/uL (152-348)
[2022-01-28 06:50] LABS: THYROID STIMULATING HORMONE 1.864 mIU/mL (0.358-3.740)
[2022-01-28 07:10] LABS: POTASSIUM 3.7 mmol/L (3.5-5.1)
[2022-01-28 07:16] LABS: BILIRUBIN,TOTAL 0.7 mg/dL (0.2-1.0); PHOSPHOROUS 4.4 mg/dL (2.5-4.9)
[2022-01-28 07:41] LABS: MAGNESIUM 1.8 mg/dL (1.8-2.4)
--- NOTE | 2022-01-28 08:40 | NUR ---
PT CALM AND RELAX. NO SOB; NO PAIN NOTED. PT JUST RESTING ON BED EATING BFAST.
[2022-01-28] MEDS: CYANOCOBALAMIN 1,000 MCG TABLET PO SCH (09:27)
[2022-01-28] MEDS: OMEGA-3 FATTY ACIDS/FISH OIL CAPSULE PO SCH (09:28)
[2022-01-28] MEDS: FOLIC ACID 1 MG TABLET PO SCH (09:28)
[2022-01-28] MEDS: LAMOTRIGINE 100 MG TABLET PO SCH ×2 (09:28→17:19)
[2022-01-28] MEDS: PAROXETINE HCL 20 MG TABLET PO SCH (09:28)
[2022-01-28] MEDS: MODAFINIL 100 MG TABLET PO SCH (09:28)
[2022-01-28] MEDS: MULTIVITAMINS,THERAPEUTIC TABLET PO SCH (09:28)
[2022-01-28] MEDS: PYRIDOXINE HCL 100 MG TABLET PO SCH (09:28)
--- NOTE | 2022-01-28 11:00 | NUR ---
PT TALKED TO MD. DISCUSS DISCHARGE PLAN. PT VERBALIZED UNDERSTANDING. PT WILL GO HOME WITH HIS .
[2022-01-28 11:33] VITALS: BP 145/78
--- NOTE | 2022-01-28 14:40 | NUR ---
PT WAS DISCHARGE. MD CLEARED HIM FOR DISCHARGE.
[2022-01-28 16:00] VITALS: BP 128/78
--- NOTE | 2022-01-28 17:00 | NUR ---
PT READY FOR DISCHARGE. PT PUT CLOTHS AND BELONGINGS AWAY BY HIMSELT. PT IS RELAX; NO SOB COMPLAI; NO SOB NOTED; NO DIZINESS NOTED.
[2022-01-28] MEDS: RIVAROXABAN 10 MG TABLET PO SCH (17:18)
--- NOTE | 2022-01-28 17:25 | NUR ---
PT SUDDENLY BECOME MORE ANXIOUS; VITALS SIGN 114/72 190 HR. PT COMPLAIN OF GEN MALAISE; NAUSEAS AND WEAKNESS. PUT PT ON THE BED TO RELAX.
--- NOTE | 2022-01-28 17:30 | NUR ---
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 pt tried to walk with the walking stick. pt suddenly slowly collapsed on his knee (assisted fall). no complain of pain. pt is very anxious. helped pt to sat down on the floor. check vital sign 114/72 144HR 98% on room air. helped pt to stand up and sat on the wheelchair. transfer pt to bed to lay down. notified.
--- NOTE | 2022-01-28 18:00 | NUR ---
TOLD MD PT IS SCARED THAT IT WOULD HAPPEN AGAIN. MD ORDER FOR PT STAY FOR THE NIGHT TRANSFER TO TELE; MD ORDER ATIVAN PRN FOR ANXIETY. WILL ENDORSED TO NOC SHIFT.
--- NOTE | 2022-01-28 19:30 | NUR ---
PT SEEM MORE RELAX NOW. AT BEDSIDE. HR STILL AT 138. MD NOTIFIED NNO AT THE MOMENT.
[2022-01-28 20:00] VITALS: BP 121/81
--- NOTE | 2022-01-28 20:00 | NUR ---
rounds made patient in bed , patient refused the Ativan he said he dont need it , instead he will be needing the sleeping later . patient is calm and patient at b/s name Margie .
[2022-01-28] MEDS: ATORVASTATIN 40 MG TABLET PO SCH (20:39)
[2022-01-28] MEDS: IV NS 1000 ML 1,000 ML IV PRN (21:00)
--- NOTE | 2022-01-28 21:09 | NUR ---
placed heplock no .20 via the left AC .attempted x1 .started iv fluids normal saline . see emar .
--- NOTE | 2022-01-28 22:09 | NUR ---
patient called and requesting medication to help him sleep . given Ambien prn for sleep /hs .
[2022-01-29] VITALS (7 sets, daily range): BP systolic 102–147; BP diastolic 69–94
[2022-01-29] MEDS: LORAZEPAM 2 MG/1 ML VIAL IV PRN ×2 (00:56→04:12)
--- NOTE | 2022-01-29 02:02 | NUR ---
called [facility] service c/o patient requesting another sleeping medication .
--- NOTE | 2022-01-29 02:10 | NUR ---
called [facility] service and informed Aretha LICENSING SPECIALIST for request for sleeping medication and patient HR 140 ( SINUS TACHYCARDIA )
[2022-01-29] MEDS ORDERED: TRAZODONE 50 MG TABLET PO ONE (02:30)
[2022-01-29] MEDS: PANTOPRAZOLE SODIUM 40 MG TABLET.DR PO SCH (06:16)
[2022-01-29 06:44] LABS: HEMATOCRIT 44.5 % (36.7-47.1); MEAN CORPUSCULAR HEMOGLOBIN 33.2 uug (23.8-33.4); MEAN CORPUSCULAR VOLUME 98.3 fL (73.0-96.2); PLATELET COUNT (AUTO) 172 K/uL (152-348)
[2022-01-29 07:18] LABS: CREATININE 1.2 mg/dL (0.6-1.3); MAGNESIUM 1.8 mg/dL (1.8-2.4); POTASSIUM 3.4 mmol/L (3.5-5.1)
--- NOTE | 2022-01-29 08:36 | NUR ---
PATIENT NOTED WITH DVR AT A RATE OF 140-150, DENIES CHEST PAIN OR SOB DR FONTANA AT BEDSIDE AND EXAMINED PATIENT. BP 130/65, HR 140-150, TEMP 98.0, RR 20/MIN
[2022-01-29] MEDS ORDERED: POTASSIUM CHLORIDE 20 MEQ POWDER PACKET PO ONE (09:00)
[2022-01-29] MEDS: OMEGA-3 FATTY ACIDS/FISH OIL CAPSULE PO SCH (09:21)
[2022-01-29] MEDS: PYRIDOXINE HCL 100 MG TABLET PO SCH (09:22)
[2022-01-29] MEDS: MODAFINIL 100 MG TABLET PO SCH (09:22)
[2022-01-29] MEDS: MULTIVITAMINS,THERAPEUTIC TABLET PO SCH (09:22)
[2022-01-29] MEDS: PAROXETINE HCL 20 MG TABLET PO SCH (09:22)
[2022-01-29] MEDS: FOLIC ACID 1 MG TABLET PO SCH (09:23)
[2022-01-29] MEDS: CYANOCOBALAMIN 1,000 MCG TABLET PO SCH (09:23)
[2022-01-29] MEDS: LAMOTRIGINE 100 MG TABLET PO SCH ×2 (09:24→17:29)
[2022-01-29] MEDS ORDERED: AMIODARONE HCL IV 150 MG in IV DEXTROSE 5% 100 ML IV ONE (09:30)
--- NOTE | 2022-01-29 09:47 | NUR ---
AMIODARONE BOLUS STARTED FOLLOWED WITH DRIP AT 1MG/MIN. CLOSELY MONITORED
[2022-01-29] MEDS: AMIODARONE HCL IV 450 MG in IV DEXTROSE 5% 250 ML IV PRN ×2 (09:56→19:28)
[2022-01-29] MEDS ORDERED: POTASSIUM CHLORIDE 20 MEQ TAB.PRT.SR PO ONE (10:00)
[2022-01-29] MEDS: IV NS 1000 ML 1,000 ML IV PRN ×2 (10:11→22:25)
--- NOTE | 2022-01-29 15:36 | NUR ---
PATIENT REMAINS ASYMPTOMATIC, DENIES CP OR SOB. ST ON MONITOR CONTINUE WITH AMIODARONE DRIP PER PROTOCOL HR 104-110
[2022-01-29] MEDS: RIVAROXABAN 10 MG TABLET PO SCH (17:30)
[2022-01-29] MEDS: ATORVASTATIN 40 MG TABLET PO SCH (20:18)
[2022-01-29] MEDS: ZOLPIDEM 5 MG TABLET PO PRN (21:49)
[2022-01-30 04:00] VITALS: BP_SYST 133; BP_SYST 136; BP_DIAS 76; BP_DIAS 79
--- NOTE | 2022-01-30 05:53 | NUR ---
Slept throughout the night. No distress noted. No chest pain or SOB. IV site intact. Tolerating Amiodarone drip, SR on the monitor. Able to make needs known. Will endorse to day shift.
[2022-01-30] MEDS: PANTOPRAZOLE SODIUM 40 MG TABLET.DR PO SCH (06:15)
[2022-01-30 07:26] LABS: HEMATOCRIT 42.3 % (36.7-47.1); MEAN CORPUSCULAR HEMOGLOBIN 33.3 uug (23.8-33.4); MEAN CORPUSCULAR VOLUME 98.2 fL (73.0-96.2); PLATELET COUNT (AUTO) 166 K/uL (152-348)
[2022-01-30 07:37] LABS: MAGNESIUM 1.7 mg/dL (1.8-2.4); PHOSPHOROUS 3.9 mg/dL (2.5-4.9); POTASSIUM 3.9 mmol/L (3.5-5.1)
[2022-01-30 07:53] VITALS: BP 120/74
--- NOTE | 2022-01-30 08:00 | NUR ---
AWAKE ALERT AND ORIENTED X3 NO SS OF ACUTE PAIN OR SOB. STILL ON AMIODARONE DRIP AT 0.5 MG/MIN. SR ON MONITOR
[2022-01-30] MEDS: PAROXETINE HCL 20 MG TABLET PO SCH (08:32)
[2022-01-30] MEDS: MULTIVITAMINS,THERAPEUTIC TABLET PO SCH (08:32)
[2022-01-30] MEDS: OMEGA-3 FATTY ACIDS/FISH OIL CAPSULE PO SCH (08:32)
[2022-01-30] MEDS: FOLIC ACID 1 MG TABLET PO SCH (08:32)
[2022-01-30] MEDS: CYANOCOBALAMIN 1,000 MCG TABLET PO SCH (08:32)
[2022-01-30] MEDS: MODAFINIL 100 MG TABLET PO SCH (08:32)
[2022-01-30] MEDS: PYRIDOXINE HCL 100 MG TABLET PO SCH (08:33)
[2022-01-30] MEDS: LAMOTRIGINE 100 MG TABLET PO SCH (08:34)
[2022-01-30] MEDS ORDERED: AMIODARONE HCL 200 MG TABLET PO SCH (09:00)
[2022-01-30] MEDS ORDERED: MAGNESIUM OXIDE 400 MG TABLET PO ONE (10:00)
--- NOTE | 2022-01-30 11:14 | NUR ---
NO ACUTE CHAGE FROM MORNING ASSESSMENT
--- NOTE | 2022-01-30 11:15 | NUR ---
SEEN AND EXAMINED BY DR FONTANA, GAVE ORDERS TO DISCONTINUE AMIODARONE DRIP AND START ON PO. ALSO MADE AWARE OF HR OF 53 AND SAID OKAY TO GIVE AMIODARONE PO ORDERED
--- NOTE | 2022-01-30 11:57 | NUR ---
SEEN BY DR MALDONADO PLAN TO DISCHARGE TODAY AND FOLLOW-UP WITH CART DRIVER
[2022-01-30 12:04] VITALS: BP 119/66
[2022-01-30] MEDS ORDERED: AMIO200T5 PO (12:53)
--- NOTE | 2022-01-30 14:44 | NUR ---
DISCHARGE MEDICATION AND FOLLOW-UP INSTRUCTION GIVEN TO PATIENT
--- NOTE | 2022-01-30 15:43 | NUR ---
DISCHARGED HOME VIA [facility]
== END 2022-01-30 15:40 | disposition home or self-care (01) | DRG 640 ==
LOC: ER 00:55 → TELE3 08:54 → MEDSURG3 01-28 09:35 → TELE3 01-28 19:00 → TELE-TD3 01-29 08:57 → TELE3 01-30 10:20
PROVIDERS: ADMIT Internal Medicine; ATTEND Internal Medicine
DX: E86.0 Dehydration (principal); N17.0 Acute kidney failure with tubular necrosis; I48.92 Unspecified atrial flutter; D68.69 Other thrombophilia; I48.0 Paroxysmal atrial fibrillation; I10 Essential (primary) hypertension; Z20.822 Contact with and (suspected) exposure to COVID-19; Z79.01 Long term (current) use of anticoagulants; Z87.891 Personal history of nicotine dependence; Z74.09 Other reduced mobility; Z91.81 History of falling; R26.9 Unspecified abnormalities of gait and mobility; R55 Syncope and collapse; F95.2 Tourette's disorder; F90.9 Attention-deficit hyperactivity disorder, unspecified type; N40.0 Benign prostatic hyperplasia without lower urinary tract symptoms; I08.1 Rheumatic disorders of both mitral and tricuspid valves; W18.30XA Fall on same level, unspecified, initial encounter; Y93.9 Activity, unspecified; Y92.009 Unspecified place in unspecified non-institutional (private) residence as the place of occurrence of the external cause; D75.89 Other specified diseases of blood and blood-forming organs; F32.9 Major depressive disorder, single episode, unspecified; G25.0 Essential tremor
CPT/HCPCS: 36415; 71045; 83605; 83735; 84100; 84443; 84484; 85025; 85730; 87040; 87086; 93005; 93307; 93880; A4663; G0378; G0480; J0282; J2060; J7040; J7050

== ENCOUNTER 2023-05-28 16:07 | Emergency (ER) | payer BC ==
[~2023-05-28] VITALS: Ht 172.7 cm; Wt 78.0 kg
[~2023-05-28 16:07] MED LIST changes: +AMIO200T5 PO; -APIX5TAB4 PO; +ATOR40TA PO; -ATOR40TA29 PO; +HYDR-3980 PO; +MODA200T44 PO; +PARO20TA7 PO; -PARO25TA16 PO; +RIVA20TA PO; -TAMS-3 PO
[2023-05-28 17:08] VITALS: O2SAT 97
[2023-05-28] MEDS ORDERED: NEOM10DR11 LEFT EAR (17:36)
== END 2023-05-28 17:43 | disposition home or self-care (01) ==
LOC: ER 16:07
DX: S00.412A Abrasion of left ear, initial encounter (principal); I48.91 Unspecified atrial fibrillation; E78.5 Hyperlipidemia, unspecified; Z88.8 Allergy status to other drugs, medicaments and biological substances; Z79.899 Other long term (current) drug therapy; W18.39XA Other fall on same level, initial encounter; Y93.89 Activity, other specified; Y92.89 Other specified places as the place of occurrence of the external cause; Y99.8 Other external cause status
CPT/HCPCS: A4606; A4663

== ENCOUNTER 2024-05-04 22:07 | Emergency (ER) | payer BC ==
[~2024-05-04] VITALS: Ht 172.7 cm; Wt 72.6 kg
[~2024-05-04 22:07] MED LIST changes: +ACET1TAB23 PO; +AZIT250T PO; +BENZ-13 PO; -UBID50TA3 PO
[2024-05-04] MEDS: IV NORMAL SALINE 1000 ML BAG IV ONE (23:02)
[2024-05-04] MEDS ORDERED: MAGNESIUM HYDROXIDE 30 ML LIQUID UDC ONE (23:04)
[2024-05-04] MEDS ORDERED: BISACODYL 10 MG SUPP.RECT RC ONE (23:04)
[2024-05-04 23:05] LABS: BASOPHILS % (AUTO) 0.5 % (0.0-2.0); EOSINOPHILS # (AUTO) 0.1 K/uL (0.0-0.7); EOSINOPHILS % (AUTO) 1.7 % (0.0-7.0); HEMATOCRIT 39.6 % (36.7-47.1); HEMOGLOBIN 13.8 g/dL (12.5-16.3); LYMPHOCYTES # (AUTO) 2.4 K/uL (0.8-4.8); LYMPHOCYTES % (AUTO) 33.4 % (20.5-51.5); MEAN CORPUSCULAR HEMOGLOBIN 34.4 uug (23.8-33.4); MEAN CORPUSCULAR HGB CONC 35 g/dL (32.5-36.3); MEAN CORPUSCULAR VOLUME 98.7 fL (73.0-96.2); MONOCYTES # (AUTO) 0.5 K/uL (0.1-1.30); MONOCYTES % (AUTO) 6.8 % (0.0-11.0); NEUTROPHILS # (AUTO) 4.1 K/uL (1.8-8.9); NEUTROPHILS % (AUTO) 57.6 % (38.5-71.5); PLATELET COUNT (AUTO) 153 K/uL (152-348); RED BLOOD CELL COUNT(AUTO) 4.01 MIL/uL (4.06-5.63); RED CELL DISTRIBUTION WIDTH 13.4 % (12.1-16.2); WHITE BLOOD COUNT (AUTO) 7.2 K/uL (3.6-10.2)
[2024-05-04] MEDS: BISACODYL 10 MG SUPP.RECT RC ONE (23:05)
[2024-05-04] MEDS: MAGNESIUM HYDROXIDE 30 ML LIQUID UDC PO ONE (23:06)
[2024-05-04 23:18] LABS: ALANINE AMINOTRANSFERASE 42 U/L (16-63); ALBUMIN 3.2 g/dL (3.4-5.0); ALKALINE PHOSPHATASE 101 U/L (50-136); ASPARTATE AMINOTRANSFERASE 24 U/L (15-37); BILIRUBIN,TOTAL 0.4 mg/dL (0.2-1.0); CALCIUM 8.7 mg/dL (8.5-10.1); CARBON DIOXIDE 28 mmol/L (21-32); CHLORIDE 108 mmol/L (98-107); GLUCOSE 116 mg/dL (74-106); SODIUM SERUM 145 mmol/L (136-145); TOTAL PROTEIN, SERUM 7.7 g/dL (6.4-8.2); UREA NITROGEN, BLOOD 25 mg/dL (7-18)
[2024-05-05] MEDS ORDERED: MINERAL OIL FLEET ENEMA 133 ML BOTTLE RC ONE (00:51)
[2024-05-05] MEDS: MINERAL OIL FLEET ENEMA 133 ML BOTTLE RC ONE (00:54)
[2024-05-05] MEDS ORDERED: MAGN296S70 PO (01:44)
[2024-05-05] MEDS ORDERED: HYDR25SU13 RC (01:44)
[2024-05-05 01:56] VITALS: BP 140/82; TEMP 98; O2SAT 98
== END 2024-05-05 02:00 | disposition home or self-care (01) ==
LOC: ER 22:10
DX: K64.9 Unspecified hemorrhoids (principal); K62.5 Hemorrhage of anus and rectum; D68.8 Other specified coagulation defects; K59.00 Constipation, unspecified; F32.A Depression, unspecified; G25.0 Essential tremor; G47.30 Sleep apnea, unspecified; I48.91 Unspecified atrial fibrillation; Z79.01 Long term (current) use of anticoagulants; Z79.899 Other long term (current) drug therapy; Z87.19 Personal history of other diseases of the digestive system; Z88.7 Allergy status to serum and vaccine; Z90.49 Acquired absence of other specified parts of digestive tract; Z90.79 Acquired absence of other genital organ(s)
CPT/HCPCS: 99284; 96360; 96361; 80053; 85025; 36415; 74022; J7040; A4606; A4663